=== PATIENT | female | born 1965 | race Caucasian/White ===

== ENCOUNTER 2016-09-30 13:34 | Emergency (ER) | payer MEDICAID ==
[~2016-09-30] VITALS: Ht 152.4 cm; Wt 78.0 kg
[2016-09-30 13:35] VITALS: BP 116/70; PULSE 81; RESP 18; TEMP 98.2; O2SAT 99
[2016-09-30 15:36] VITALS: BP 119/68; PULSE 61; RESP 18; TEMP 97.7; O2SAT 98; O2SAT 99
[2016-09-30] MEDS ORDERED: AMOX500C PO (15:36)
--- NOTE | 2016-09-30 15:38 | PD ---
HPI Chief Complaint: Dizziness Time Seen by Provider: 15:38 Travel History International Travel<30 days: No Contact w/Intl Traveler<30days: No Traveled to known affect area: No History of Present Illness HPI 51 YO female presents to the ED for evaluation of central chest pain, dizziness and palpitations. Resolved on presentation. Onset at noon, at rest. Patient states that she was "outside but in the shade." Patient denies accompanying SOB , diaphoresis, nausea or vomiting. Denies fevers, chills, cough, abdominal pain , dysuria. Patient endorses 20+ pack year smoking history. She states she "quit" 4 days ago and smoked a cigarette today just before onset of symptoms. LMP "a few months ago." Endorses unprotected sex and risk of . She denies personal or familial cardiac history. PFSH Past Medical History Hx Anticoagulant Therapy: Yes (ASA ) Arthritis: Yes Asthma: Yes Cardiovascular Problems: No High Cholesterol: No Chemotherapy: No COPD: No Cerebrovascular Accident: No Diabetes: No Diminished Hearing: No Musculoskeletal: No Neurologic: No Respiratory: No Immunizations Current: Yes Sleep Apnea: No Tetanus Vaccination: < 5 Years Influenza Vaccination: Yes ?: Not Menopausal: Yes : 3 Para: 3 Miscarriage: 0 : 0 Past Surgical History Section: Yes (X 3) Cholecystectomy: Yes Gynecologic Surgery: Yes ( X 3 ) Hysterectomy: No Oral Surgery: Yes Other Surgery: Yes (c section x3, right leg trauma repair) Social History Alcohol Use: No (occassionally ) Tobacco Use: Yes (quit 4 days ago and then re-started today ) Substance Use: No Allergies-Medications (Allergen,Severity, Reaction): Coded Allergies: Lortab (Verified Allergy, Intermediate, 09/30/16) PT STATES SHE THROWS UP *MDRO Multi-Drug Resistant Organism (Verified Adverse Reaction, Unknown, ) 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 SKIN: Focused skin assessment warm/dry. HEAD: Normocephalic. EYES: No scleral icterus. No injection or drainage. NECK: Supple, trachea midline. No JVD or lymphadenopathy. CARDIOVASCULAR: Regular rate and rhythm without murmurs, gallops, or rubs. RESPIRATORY: Breath sounds clear and equal bilaterally. No accessory muscle use. GASTROINTESTINAL: Abdomen soft, non-tender, nondistended. Active bowel sounds MUSCULOSKELETAL: No cyanosis, or edema. Ambulatory with a normal gait. BACK: Nontender without obvious deformity. No CVA tenderness. Data Data Last Documented VS Vital Signs Date Time Temp Pulse Resp B/P Pulse Ox O2 Delivery O2 Flow Rate FiO2 09/30/16 18:06 67 16 132/89 99 09/30/16 15:36 97.7 Room Air Orders Electrocardiogram (09/30/16 15:33) Complete Blood Count With Diff (09/30/16 15:33) Comprehensive Metabolic Panel (09/30/16 15:33) Ckmb (Isoenzyme) Profile (09/30/16 15:33) Troponin I (09/30/16 15:33) Act Partial Throm Time (Ptt) (09/30/16 15:33) Prothrombin Time / Inr (Pt) (09/30/16 15:33) Urinalysis - C+S If Indicated (09/30/16 15:33) Chest, Single Ap (09/30/16 15:33) Ct Brain W/O Iv Contrast(Rout) (09/30/16 15:33) Ecg Monitoring (09/30/16 15:33) Iv Access Insert/Monitor (09/30/16 15:33) Oximetry (09/30/16 15:33) Sodium Chloride 0.9% Flush (Ns Flush) (09/30/16 15:45) Alcohol (Ethanol) (09/30/16 15:46) Sodium Chlor 0.9% 1000 Ml Inj (Ns 1000 M (09/30/16 16:00) Ed Urine Pregnancytest Poc (09/30/16 15:46) CKMB (09/30/16 15:45) CKMB% (09/30/16 15:45) Urine Culture (09/30/16 16:35) Sulfamet-Trimeth Ds 800-160 Mg (Bactrim (09/30/16 17:30) Labs Laboratory Tests Test 09/30/16 09/30/16 15:45 16:35 White Blood Count 6.7 TH/MM3 Red Blood Count 3.98 MIL/MM3 Hemoglobin 13.5 GM/DL Hematocrit 39.2 % Mean Corpuscular Volume 98.4 FL Mean Corpuscular Hemoglobin 34.0 PG Mean Corpuscular Hemoglobin 34.6 % Concent Red Cell Distribution Width 14.3 % Platelet Count 124 TH/MM3 Mean Platelet Volume 9.1 FL Neutrophils (%) (Auto) 56.3 % Lymphocytes (%) (Auto) 32.4 % Monocytes (%) (Auto) 7.9 % Eosinophils (%) (Auto) 2.6 % Basophils (%) (Auto) 0.8 % Neutrophils # (Auto) 3.8 TH/MM3 Lymphocytes # (Auto) 2.2 TH/MM3 Monocytes # (Auto) 0.5 TH/MM3 Eosinophils # (Auto) 0.2 TH/MM3 Basophils # (Auto) 0.1 TH/MM3 CBC Comment DIFF FINAL Differential Comment Prothrombin Time 12.0 SEC Prothromb Time International 1.1 RATIO Ratio Activated Partial 27.7 SEC Thromboplast Time Sodium Level 139 MEQ/L Potassium Level 4.4 MEQ/L Chloride Level 107 MEQ/L Carbon Dioxide Level 24.1 MEQ/L Anion Gap 8 MEQ/L Blood Urea Nitrogen 14 MG/DL Creatinine 0.65 MG/DL Estimat Glomerular Filtration 97 ML/MIN Rate Random Glucose 78 MG/DL Calcium Level 8.9 MG/DL Total Bilirubin 1.1 MG/DL Aspartate Amino Transf 479 U/L (AST/SGOT) Alanine Aminotransferase 415 U/L (ALT/SGPT) Alkaline Phosphatase 215 U/L Total Creatine Kinase 115 U/L Creatine Kinase MB 1.6 NG/ML Troponin I LESS THAN 0.02 NG/ML Total Protein 7.5 GM/DL Albumin 2.9 GM/DL Ethyl Alcohol Level LESS THAN 3 MG/DL Urine Color YELLOW Urine Turbidity HAZY Urine pH 6.0 Urine Specific [place] 1.016 Urine Protein TRACE mg/dL Urine Glucose (UA) NEG mg/dL Urine Ketones NEG mg/dL Urine Occult Blood SMALL Urine Nitrite POS Urine Bilirubin NEG Urine Urobilinogen 2.0 MG/DL Urine Leukocyte Esterase LARGE Urine RBC 6 /hpf Urine WBC /hpf Urine WBC Clumps FEW Urine Squamous Epithelial 3 /hpf Cells Urine Bacteria OCC /hpf Urine Mucus FEW /lpf Microscopic Urinalysis Comment CULTURE INDICATED MDM Medical Decision Making Medical Screen Exam Complete: Yes Emergency Medical Condition: Yes Differential Diagnosis near syncope versus vasovagal syncope versus nicotine reaction versus less likely ICH versus less likely ACS versus other Narrative Course 51 YO female presents to the ED for evaluation of central chest pain, dizziness and palpitations. Resolved on presentation. Onset at noon, at rest. Patient states that she was "outside but in the shade." Patient denies accompanying SOB , diaphoresis, nausea or vomiting. Denies fevers, chills, cough, abdominal pain , dysuria. Patient endorses 20+ pack year smoking history. She states she "quit" 4 days ago and smoked a cigarette today just before onset of symptoms. LMP "a few months ago." Endorses unprotected sex and risk of . She denies personal or familial cardiac history. Vitals are reviewed and are within normal limits. Physical exam reveals a nontoxic-appearing white female in no acute distress. No focal neural deficits. Patient is laughing and joking throughout the exam. Chest clear to auscultation bilaterally. No abdominal tenderness. No CVA tenderness. No concerning abnormalities the CBC. CMP with elevation of the LFTs, chronic per record review. Cardiac enzymes negative 1. EKG rate 63, sinus rhythm, normal intervals, normal axis. No ST elevations. Reviewed by Dr. Lagos. Chest x-ray with no evidence of acute cardiopulmonary disease. UA is nitrite and leukocyte esterase positive. WBC clumps are present as well. Discussed the patient, results of the workup and plan of care with Dr. Lagos. I discussed the results of the workup with the patient. She was prescribed Bactrim DS twice a day 7 days. First dose administered in the ED. She is instructed to stop smoking, take all medication as prescribed, follow up with the primary care provider. She indicated understanding of instructions and is agreeable to the care plan. This patient is stable and discharged home. Diagnosis Primary Impression: UTI (urinary tract infection) Qualified Code: N39.0 - Urinary tract infection without hematuria, site unspecified Referrals: Primary Care Physician Patient Instructions: General Instructions, Urinary Tract Infection in Women ( ED) Additional Instructions: Rest, hydrate. Take all antibiotics as prescribed, even if symptoms resolve. Don't start smoking again! Follow-up with the primary care provider Return to the ED for worsening of symptoms or any urgent or emergent medical condition. Med/Other Pt SpecificInfo: Prescription(s) given Scripts Sulfamethoxazole-Trimethoprim (Bactrim DS)800-160 Mg Tab1 Tab PO BID #14 TAB Ref 0 Prov:Nick Lagos MD 09/30/16 Disposition: 01 DISCHARGE HOME Condition: Stable Madelin Cantu Sep 30, 2016 15:38
[2016-09-30] MEDS ORDERED: SODIUM CHLORIDE 0.9% FLUSH 10 ML FLUSH IVF PRN (15:45)
[2016-09-30] MEDS ORDERED: SODIUM CHLOR 0.9% 1000 ML INJ 1,000 ML IV ONE (16:00)
--- NOTE | 2016-09-30 16:24 | RADRPT ---
EXAM DATE/TIME: 09/30/2016 15:43 [facility] COMPARISON: No previous studies available for comparison. INDICATIONS : Chest pains. MEDICAL HISTORY : None. SURGICAL HISTORY : Cholecystectomy. section ENCOUNTER: Initial ACUITY: 1 day PAIN SCORE: 0/10 LOCATION: Bilateral chest FINDINGS: A single view of the chest demonstrates the lungs to be symmetrically aerated without evidence of mas s, infiltrate or effusion. The cardiomediastinal contours are unremarkable. Osseous structures are intact. CONCLUSION: 1. No acute cardiopulmonary findings Hero Soto MD on September 30, 2016 at 16:17 Board Certified Radiologist. This report was verified electronically.
--- NOTE | 2016-09-30 16:26 | RADRPT ---
EXAM DATE/TIME: 09/30/2016 16:06 [facility] COMPARISON: CT BRAIN W/O CONTRAST, August 14, 2015, 7:53. INDICATIONS : Dizziness RADIATION DOSE: 49.69 CTDIvol (mGy) MEDICAL HISTORY : Asa asthma SURGICAL HISTORY : section. ENCOUNTER: Initial ACUITY: 1 day PAIN SCALE: 0/10 LOCATION: cranial TECHNIQUE: Multiple contiguous axial images were obtained of the head. Using automated exposure control and adj ustment of the mA and/or kV according to patient size, radiation dose was kept as low as reasonably a chievable to obtain optimal diagnostic quality images. FINDINGS: CEREBRUM: The ventricles are normal for age. No evidence of midline shift, mass lesion, hemorrhage or acute in farction. No extra-axial fluid collections are seen. POSTERIOR FOSSA: The cerebellum and brainstem are intact. The 4th ventricle is midline. The cerebellopontine angle i s unremarkable. EXTRACRANIAL: The visualized portion of the orbits is intact. SKULL: The calvaria is intact. No evidence of skull fracture. CONCLUSION: No acute disease. Felipe Key MD on September 30, 2016 at 16:21 Board Certified Radiologist. This report was verified electronically.
[2016-09-30 16:40] LABS: AUTOMATED NEUTROPHIL # 3.8 TH/MM3 (1.8-7.7); BASOPHIL # 0.1 TH/MM3 (0-0.2); BASOPHIL % 0.8 % (0.0-2.0); EOSINOPHIL # 0.2 TH/MM3 (0-0.4); EOSINOPHIL % 2.6 % (0.0-4.0); HEMATOCRIT 39.2 % (35.0-46.0); HEMO FLAGS DIFF FINAL; LYMPH % 32.4 % (9.0-44.0); LYMPHOCYTE # 2.2 TH/MM3 (1.0-4.8); MEAN CELL VOLUME 98.4 FL (80.0-100.0); MEAN CORPUSCULAR HGB CONC 34.6 % (32.0-36.0); MONO % 7.9 % (0.0-8.0); NEUT % 56.3 % (16.0-70.0); PLATELET COUNT 124 TH/MM3 (150-450); RED BLOOD COUNT 3.98 MIL/MM3 (4.00-5.30); RED CELL DISTRIBUTION WIDTH 14.3 % (11.6-17.2); WHITE BLOOD COUNT 6.7 TH/MM3 (4.0-11.0)
[2016-09-30 16:50] LABS: APTT (PATIENT) 27.7 SEC (24.3-30.1); INTERNATIONAL NORMALIZED RATIO 1.1 RATIO
--- NOTE | 2016-09-30 16:51 | EKG ---
Date Performed: 09/30/2016 Time Performed: 14:09:46 PTAGE: 51 years EKG: Sinus rhythm NORMAL ECG NO PREVIOUS TRACING DOCTOR: Kieran Street Interpretating Date/Time 09/30/2016 16:48:40
[2016-09-30 17:02] LABS: ANION GAP 8 MEQ/L (5-15); AST (GOT) 479 U/L (15-37); BICARBONATE 24.1 MEQ/L (21.0-32.0); BLOOD UREA NITROGEN 14 MG/DL (7-18); CHLORIDE 107 MEQ/L (98-107); GLOMERULAR FILTRATION RATE 97 ML/MIN (>89); SODIUM (NA) 139 MEQ/L (136-145)
[2016-09-30 17:06] LABS: POTASSIUM 4.4 MEQ/L (3.5-5.1)
[2016-09-30 17:07] LABS: ALKALINE PHOSPHATASE 215 U/L (45-117); ALT (GPT) 415 U/L (10-53); CREATINE KINASE 115 U/L (26-192); TOTAL BILIRUBIN ADULT 1.1 MG/DL (0.2-1.0)
[2016-09-30 17:13] LABS: BACTERIA, URINE OCC /hpf; BLOOD, URINE SMALL (NEG); COMMENT (UR) CULTURE INDICATED; CULTURE IF INDICATED CULTURE INDICATED; GLUCOSE,URINE NEG (NEG); KETONE, URINE NEG (NEG); MUCUS URINE FEW /lpf (OCC); NITRITE,URINE POS (NEG); SQUAMOUS EPITHELIAL CELL URINE 3 /hpf (0-5); URINE COLOR YELLOW (YELLW/STRAW)
[2016-09-30 17:19] LABS: CKMB 1.6 NG/ML (0.5-3.6)
[2016-09-30] MEDS ORDERED: BACT800T5 PO (17:25)
[2016-09-30] MEDS ORDERED: SULFAMETHOXAZOLE-TRIMETHOPRIM DS 800-160 MG TAB PO ONE (17:30)
[2016-09-30 18:06] VITALS: BP 132/89
== END 2016-09-30 18:05 | disposition home or self-care (01) ==
LOC: NEPD 13:34
DX: N39.0 Urinary tract infection, site not specified (principal); B96.20 Unspecified Escherichia coli [E. coli] as the cause of diseases classified elsewhere; Z72.0 Tobacco use
CPT/HCPCS: 70450; 71010; 80053; 80307; 81001; 82550; 82552; 84484; 84703; 85025; 85610; 85730; 87077; 87086; 87186; 93005; 96360; 96361; 99285; J7030

== ENCOUNTER 2016-10-26 23:30 | Emergency (ER) | payer MEDICAID ==
[~2016-10-26] VITALS: Ht 157.5 cm; Wt 80.0 kg
[~2016-10-26 23:30] MED LIST: AMOX500C PO; BACT800T5 PO
[2016-10-26 23:33] VITALS: BP 126/89; PULSE 87; RESP 20; TEMP 97.6; O2SAT 96
[2016-10-27] MEDS ORDERED: CIPR0.3S RIGHT EAR (00:08)
[2016-10-27] MEDS ORDERED: NORC5TAB PO (00:08)
--- NOTE | 2016-10-27 00:08 | PD ---
HPI . Right ear pain Chief Complaint: ENT Complaint Time Seen by Provider: 23:59 Travel History International Travel<30 days: No Contact w/Intl Traveler<30days: No Traveled to known affect area: No History of Present Illness HPI Patient presents with chief complaint of right ear pain. Onset was a week ago. Her symptoms were made acutely worse tonight when she put Vicks in her ear. She is complaining with severe pain and itching of the right ear. The pain is continuous. She states that it has been draining yellow material. PFSH Past Medical History Hx Anticoagulant Therapy: Yes (ASA ) Arthritis: Yes Asthma: Yes Cardiovascular Problems: No High Cholesterol: No Chemotherapy: No COPD: No Cerebrovascular Accident: No Diabetes: No Diminished Hearing: No Musculoskeletal: No Neurologic: No Respiratory: No Immunizations Current: Yes Sleep Apnea: No ?: Not Menopausal: Yes : 3 Para: 3 Miscarriage: 0 : 0 Past Surgical History Section: Yes (X 3) Cholecystectomy: Yes Gynecologic Surgery: Yes ( X 3 ) Hysterectomy: No Oral Surgery: Yes Other Surgery: Yes Social History Alcohol Use: No Tobacco Use: No Substance Use: No Allergies-Medications (Allergen,Severity, Reaction): Coded Allergies: Lortab (Verified Allergy, Intermediate, 10/26/16) PT STATES SHE THROWS UP Hydrocodone (Verified Adverse Reaction, Mild, Nausea/Vomiting, 10/26/16) *MDRO Multi-Drug Resistant Organism (Verified Adverse Reaction, Unknown, ) 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 Very histrionic SKIN: Warm and dry. HEAD: Atraumatic. Normocephalic. Purulent drainage in the right EAC. The TM cannot be visualized. EYES: Pupils equal and round. Extraocular movements are intact. NECK: Trachea midline. Neck is supple. CARDIOVASCULAR: Regular rate and rhythm. RESPIRATORY: No accessory muscle use. MUSCULOSKELETAL: No obvious deformities. No edema. NEUROLOGICAL: Awake and alert. No obvious cranial nerve deficits. Motor grossly within normal limits. Normal speech. PSYCHIATRIC: Histrionic. Data Data Last Documented VS Vital Signs Date Time Temp Pulse Resp B/P Pulse Ox O2 Delivery O2 Flow Rate FiO2 10/27/16 00:00 16 10/26/16 23:33 97.6 87 126/89 96 Room Air MDM Medical Decision Making Medical Screen Exam Complete: Yes Emergency Medical Condition: Yes Differential Diagnosis Differential diagnosis of ear pain includes eustachian tube dysfunction, otitis externa, otitis media, TMJ syndrome Narrative Course Patient presents complaining with right ear pain. She has had ear pain for a week. It became acutely worse tonight when she put Vicks in her ear. She'll be treated for otitis externa. Diagnosis Primary Impression: Right otitis externa Qualified Code: H60.501 - Acute otitis externa of right ear, unspecified type Patient Instructions: General Instructions, Otitis Externa (DC) Med/Other Pt SpecificInfo: Prescription(s) given Scripts Hydrocodone-Acetaminophen ([place])5-325 mg Tab1 Tab PO Q4H PRN (PAIN) #12 TAB Ref 0 Prov:Alisia Henson MD 10/27/16 Ciprofloxacin-Dexamethasone Otic Drops (Ciprodex Otic Drops)0.3-0.1% Susp4 Drop RIGHT EAR BID 10 Days Ref 0 Prov:Alisia Henson MD 10/27/16 Disposition: 01 DISCHARGE HOME Condition: Stable Alisia Henson MD Oct 27, 2016 00:08
[2016-10-27] MEDS ORDERED: IBUPROFEN 800 MG TAB PO ONE (00:15)
[2016-10-27] MEDS ORDERED: NEOMYCIN/POLYMYXIN/HYDROCORT OTIC SUSP 10 ML BTL RIGHT EAR SCH (00:15)
== END 2016-10-27 00:33 | disposition home or self-care (01) ==
LOC: NEPD 23:30
DX: H60.91 Unspecified otitis externa, right ear (principal); M13.80 Other specified arthritis, unspecified site; J45.909 Unspecified asthma, uncomplicated; Z79.899 Other long term (current) drug therapy
CPT/HCPCS: 99283

== ENCOUNTER 2018-06-05 18:01 | Inpatient (IN) ==
[2018-06-05] MEDS ORDERED: Morphine Inj 4 MG/ML Vial IV.PUSH ONE (19:22)
--- NOTE | 2018-06-05 19:32 | ED ---
Triage General Chief Complaint: Abdominal Pain Time Seen by Provider: 06/05/18 19:16 Source: patient and other (friend) Limitations: no limitations Pre-Hospital Care Pre-Hospital Care Given: No History of Present Illness HPI narrative: 52-year-old female here for evaluation of severe abdominal pain, abdominal distention, bilateral lower extremity edema. Patient reports that in August of last year she was told that she has a mass in her left lower abdomen at [facility] and was followed initially by oncologist Dr. Santos. Patient has been homeless and has not been able to follow with this physician since August of last year. She is not sure what the exact etiology of the masses. She was supposed to follow with an [employer] physician regarding the mass, however has been unable to do so. Over the last 4 days she has noticed increasing abdominal girth and worsening abdominal pain. She was prescribed tramadol from an urgent care clinic, however this has not been helping her. She has had history of sections, no other abdominal surgeries. She has been having nausea, vomiting, and diarrhea which have been nonbloody, nonbilious, however the symptoms have resolved. The pain starts in her left lower abdomen, is severe, constant, pressure/sharp, radiates to the rest of her abdomen, worse with movements and palpation. After examining the patient, given history and exam findings of a distended abdomen with the possibility of an acute abdomen versus ascites versus peritonitis versus metastatic disease, the patient will likely require an extensive workup and admission. She will be transferred to a medical pod where the patient's care will be taken over by another physician. Initial workup ordered by me in triage which include labs, UA, CT abdomen pelvis, chest x-ray, analgesia. Exam Narrative Exam: GENERAL: Well-developed, well-nourished, overweight, very uncomfortable secondary to abdominal pain, pleasant, calm SKIN: Focused skin assessment warm/dry. HEAD: Atraumatic. Normocephalic. EYES: Pupils equal and round. No scleral icterus. No injection or drainage. ENT: No nasal bleeding or discharge. Mucous membranes pink and moist. NECK: Trachea midline. No JVD. CARDIOVASCULAR: Regular rate and rhythm. No murmur appreciated. RESPIRATORY: No accessory muscle use. Clear to auscultation. Breath sounds equal bilaterally. GASTROINTESTINAL: Abdomen firm, round, distended, significantly tender throughout her abdomen. There is a midline/lower well-healed vertical surgical scar that the patient reports is from prior section. MUSCULOSKELETAL: No obvious deformities. No clubbing. No cyanosis. Significant bilateral lower extremity edema from foot to thigh. NEUROLOGICAL: Awake and alert. No obvious cranial nerve deficits. Motor grossly within normal limits. Normal speech. PSYCHIATRIC: Appropriate mood and affect; insight and judgment normal. Home Meds Home Medications Medication Instructions Recorded Confirmed tramadol 50 mg PO QID 06/05/18 06/05/18 Allergies Allergies Allergy/AdvReac Type Severity Reaction Status Date / Time acetaminophen Allergy Intermediate Nausea/Vomi Verified 06/05/18 20:57 ting hydrocodone AdvReac Mild Nausea/Vomi Verified 06/05/18 20:57 ting *MDRO Multi-Drug Resistant AdvReac Unknown Nausea/Vomi Uncoded 06/05/18 20:57 Organism ting Vital Signs Recall Vital Signs: Initial Documented Vital Signs Temperature 97.9 F 06/05/18 18:03 Pulse Rate 81 06/05/18 18:03 Respiratory Rate 16 06/05/18 18:03 Blood Pressure 131/81 06/05/18 18:03 Pulse Oximetry 97 06/05/18 18:03 Last Documented Vital Signs Temperature 97.9 F 06/05/18 18:03 Pulse Rate 81 06/05/18 18:03 Respiratory Rate 16 06/05/18 18:03 Blood Pressure 131/81 06/05/18 18:03 Pulse Oximetry 97 06/05/18 18:03 Vital Signs 3 l l l l 06/05/18 18:03 l l Height 152.4 cm l l Weight 113.398 kg l l BMI 48.8 l l BP 131/81 l l Blood Pressure Location l l Position Sitting l l Respiration 16 l l Pulse 81 l l Pulse Source l l Temp 97.9 F l l Temp Source Oral l l Pulse Oximetry (%) 97 l l Oxygen Delivery Method l l Oxygen Flow Rate l l Comment PMFSH Surgical History Surgical History H/O: (Acute) Social History Social History Substance History: Active Abuse Smoking Status: Former smoker How Often Do You Have a Drink Containing Alcohol: Never Recent Travel in [facility] within the Last 8 Weeks: No Recent Out of Country Travel within the Last 8 Weeks: No Substance Abuse Detail Marijuana: Substance Use Status: Active Route Used Substance Abuse: Inhalation Reason for Use: Get High Immunization History Tetanus Immunization: Unsure
[2018-06-05 19:45] LABS: Eos # (Auto) 0.2 th/mm3 (0.0-0.4); Eos % (Auto) 3.9 % (0.0-4.0); Hematocrit 37.1 % (35.0-46.0); Hemoglobin 12.5 gm/dL (11.6-15.3); Lymph # (Auto) 1.4 th/mm3 (1.0-4.8); Lymph % (Auto) 29.4 % (9.0-44.0); Mean Corpuscular HGB Conc 33.8 % (32.0-36.0); Mean Corpuscular Hemoglobin 33.6 pg (27.0-34.0); Mean Corpuscular Volume 99.4 fL (80.0-100.0); Mean Platelet Volume 8.2 fL (7.0-11.0); Mono # (Auto) 0.5 th/mm3 (0.0-0.9); Mono % (Auto) 10.8 % (0.0-8.0); Neut # (Auto) 2.7 th/mm3 (1.8-7.7); Neut % (Auto) 54.9 % (16.0-70.0); Platelet Count 117 th/mm3 (150-450); Red Blood Count 3.73 mil/mm3 (4.00-5.30); Red Cell Distribution Width 14.5 % (11.6-17.2); White Blood Count 4.8 th/mm3 (4.0-11.0)
[2018-06-05 20:10] LABS: Alanine Aminotransferase 129 U/L (10-53)
[2018-06-05 20:11] LABS: Activated Partial Thrombo Time 30.3 sec (23.4-31.7); INR 1.4 Ratio
[2018-06-05 20:12] LABS: Alkaline Phosphatase 190 U/L (45-117); Total Protein 6.9 g/dL (6.4-8.2)
[2018-06-05 20:15] LABS: Anion Gap 6 meq/L (5-15); Aspartate Aminotransferase 220 U/L (15-37); Blood Urea Nitrogen 12 mg/dL (7-18); Carbon Dioxide 26.1 meq/L (21.0-32.0); Chloride 107 meq/L (98-107); Glomerular Filtration Rate Greater Than 89 mL/min (>89); Glucose,Random 99 mg/dL (74-106); Lipase 94 U/L (73-393); Magnesium 2.1 mg/dL (1.5-2.5); Potassium 4.2 meq/L (3.5-5.1); Sodium 139 meq/L (136-145)
--- NOTE | 2018-06-05 21:01 | XR ---
EXAM DATE: 06/05/2018 8:59 PM EST AGE/SEX: 52 years / Female INDICATIONS: Shortness of breath. CLINICAL DATA: This is the patient's initial encounter. Patient reports that signs and symptoms have been present for 1 day and indicates a pain score of 0/10. MEDICAL/SURGICAL HISTORY: None. Cholecystectomy. section. COMPARISON: [facility] [place], CHEST SINGLE AP, 09/30/2016. . FINDINGS: A single AP view of the chest demonstrates the lungs to be symmetrically aerated without evidence of mass, infiltrate or effusion. No evidence of pneumothorax. The cardiomediastinal contours are unremar kable. Osseous structures are intact. CONCLUSION: The lungs are clear. Electronically signed by: Kristopher Gillis MD Board Certified Radiologist 06/05/2018 9:00 PM EST
[2018-06-05 21:19] LABS: Amorphous Sediment,Urine Rare /hpf; Bacteria,Urine Occasional /hpf; Bilirubin,Urine Negative (Negative); Calcium Oxalate Crystals,Urine Occasional /hpf; Clarity,Urine Cloudy (Clear); Color,Urine Amber (Yellw/Straw); Glucose,Urine (UA) Negative (Negative); Leukocyte Esterase,Urine Large (Negative); Mucus,Urine Few /lpf (Occasional); Nitrite,Urine Positive (Negative); Specific Gravity,Urine 1.016 (1.002-1.035); Squamous Epithelial Cell,Urine 7 /hpf (0-5)
--- NOTE | 2018-06-05 22:21 | CT ---
EXAM DATE: 06/05/2018 10:13 PM EST AGE/SEX: 52 years / Female INDICATIONS: Abdominal pain and swelling. CLINICAL DATA: This is the patient's initial encounter. Patient reports that signs and symptoms have been present for 3 days and indicates a pain score of 5/10. MEDICAL/SURGICAL HISTORY: None. section. ORAL CONTRAST: No oral contrast ingested. RADIATION DOSE: 33.01 CTDI (mGy) ; Patient body habitus COMPARISON: [facility], CT ABDOMEN AND PELVIS W/ CONTRAST, 08/14/2017. . TECHNIQUE: Multiple contiguous axial images were obtained through the abdomen and pelvis following b olus infusion of 100 ml Omnipaque 350 (iohexol) nonionic water-soluble contrast as a single exam do se. No oral contrast ingested. Using automated exposure control and adjustment of the mA and/or kV a ccording to patient size, radiation dose was kept as low as reasonably achievable to obtain optimal d iagnostic quality images. DICOM format image data is available electronically for review and compari son. FINDINGS: Interval development of a severe amount of ascites throughout the abdomen and pelvis causing distenti on of the abdomen. Low-density mass in the right pelvis measures 10.8 cm (previously measured 11.7 cm ) there is also subcutaneous fluid about the lateral abdominal wall bilaterally and induration of the subcutaneous fat. Nodular surface contour to the liver with homogeneous enhancement. No focal hepatic lesions seen. Cho lecystectomy. The spleen has a homogeneous density. The kidneys, adrenal glands, and pancreas are int act. No evidence of retroperitoneal or inguinal adenopathy. Osseous structures are intact. Visualized lower lungs are clear. Stable urethral diverticulum. CONCLUSION: 1. Interval development of severe ascites and bilateral abdominal wall fluid. 2. Low-density cystic right pelvic mass is similar to prior. Electronically signed by: Kristopher Gillis MD Board Certified Radiologist 06/05/2018 10:20 PM EST
--- NOTE | 2018-06-05 23:13 | P.HPFP ---
History of Present Illness Primary Care Physician: Chauncey Tee MD History of Present Illness: 52-year-old female presents the ED with lower abdominal pain and abdominal distention. Patient has a history of right ovarian mass. States that she was told about this around 9 months ago. Was supposed to follow-up with Dr. Santos at [facility]. States that her appointment is not until June 25. Upon EMR review, patient was seen in the ED in 2016 and was diagnosed with right ovarian mass. Patient had appointment to follow with Dr. Triplett. Unsure if she ever followed up. She reports trouble with transportation. She reports increased abdominal distention for the past month. States that she has worsening abdominal pain for the past 2 weeks. Describes it as sharp, intermittent, located in the lower abdominal region. Rates the pain at 8 out of 10, but relieved with morphine. States that she was recently prescribed tramadol by her PCP for pain relief. Reports that she is gaining about 50 pounds over the past couple months. Last bowel movement was this morning, she states it was normal. Denies fevers, night sweats, diarrhea, nausea vomiting, and dysuria. 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 Hx: - 3 c-sections last pap smear- last year normal mammogram- last year normal PSHx:[id number] Cholecystectomy FHx: Mom- ovarian cancer- 50-60s [id number] SHx: Disabled Single Lives alone Former smoker, quit 1 month ago, 1-2 ppd for 20 years Denies drinking Endorses cocaine use in the past - Diagnosis (1) Ovarian mass (2) UTI (urinary tract infection) (3) Ascites (4) Abdominal pain Review of Systems All other systems reviewed negative except as stated in HPI PMFSH - History History Provided By: Patient, Family Member - Surgical History Surgical History: Surgical History (Last Reviewed 06/05/18 @ 23:24 by Zainab Lopez MD) H/O: - Social History I have reviewed the patient's Social History: Yes - Tobacco History Tobacco Use In Past 30 Days: No Smoking Status: Former smoker - Alcohol History How Often Do You Have a Drink Containing Alcohol: Never - Substance Use History Substance History: Active Abuse - Substance Use Type Marijuana Status: Active Route Used: Inhalation Reason for Use: Get High - Travel History Recent Travel in the [facility] Within the Last 8 Weeks: No Recent Travel Out of the Country Within the Last 8 Weeks: No - Immunization History Tetanus Immunization: Unsure Medications and Allergies Active Medications: Active Medications Sodium Chloride (Ns Flush) 2 ml IV.FLUSH PRN PRN PRN Reason: FLUSH AFTER USING IV ACCESS Allergies Allergy/AdvReac Type Severity Reaction Status Date / Time acetaminophen Allergy Intermediate Nausea/Vomi Verified 06/05/18 20:57 ting hydrocodone AdvReac Mild Nausea/Vomi Verified 06/05/18 20:57 ting *MDRO Multi-Drug Resistant AdvReac Unknown Nausea/Vomi Uncoded 06/05/18 20:57 Organism ting Home Medications Medication Instructions Recorded Confirmed Type tramadol 50 mg PO QID 06/05/18 06/05/18 History Exam Vital signs: Vital Signs 06/05/18 18:03 Temperature 97.9 F Pulse Rate 81 Respiratory Rate 16 Blood Pressure 131/81 Pulse Oximetry 97 Intake & Output 06/05/18 06/05/18 06/06/18 06:59 18:59 06:59 Weight 113.398 kg - Constitutional morbidly obese - Routine HEENT Exam ENT: Present: mucous membranes moist - Routine Neck Exam Present: supple, full ROM - Routine Respiratory Exam Present: CTA bilaterally. Absent: wheezes, crackles - Routine Cardiovascular Exam Present: RRR. Absent: S1, S2, murmur, gallop, rubs - Routine Abdominal Exam Present: soft, distended Comments: Hypoactive bowel sounds, abdomen severely distended, firm, no tenderness on palpation, no rebound, no guarding - Routine Extremities Exam Present: edema. Absent: cyanosis Comments: 2+ pitting edema bilaterally - Routine Skin Exam Present: jaundice - Routine Neurological Exam Present: alert, oriented X3 Results - Labs Result diagrams: 06/05/18 19:37 06/05/18 19:37 Abnormal lab results 06/05/18 06/05/18 06/05/18 Range/Units 19:37 19:37 19:37 RBC 3.73 L (4.00-5.30) mil/mm3 Plt Count 117 L (150-450) th/mm3 [place] % (Auto) 10.8 H (0.0-8.0) % PT 14.0 H (9.8-11.6) sec Calcium 8.0 L (8.5-10.1) mg/dL Total Bilirubin 2.0 H (0.2-1.0) mg/dL AST 220 H (15-37) U/L ALT 129 H (10-53) U/L Alkaline Phosphatase 190 H (45-117) U/L Albumin 2.0 L (3.4-5.0) g/dL Urine Clarity (Clear) Urine Protein (Neg-Trace) mg/dL Urine Occult Blood (Negative) Urine Nitrate (Negative) Ur Leukocyte Esterase (Negative) Urine RBC (0-3) /hpf Urine WBC Clumps (None) Calcium Oxalate Crystal (None) /hpf Amorphous Sediment (None) /hpf Urine Bacteria (None) /hpf Urine Mucus (Occasional) /lpf 06/05/18 Range/Units 20:45 RBC (4.00-5.30) mil/mm3 Plt Count (150-450) th/mm3 [place] % (Auto) (0.0-8.0) % PT (9.8-11.6) sec Calcium (8.5-10.1) mg/dL Total Bilirubin (0.2-1.0) mg/dL AST (15-37) U/L ALT (10-53) U/L Alkaline Phosphatase (45-117) U/L Albumin (3.4-5.0) g/dL Urine Clarity Cloudy H (Clear) Urine Protein 30 H (Neg-Trace) mg/dL Urine Occult Blood Large H (Negative) Urine Nitrate Positive H (Negative) Ur Leukocyte Esterase Large H (Negative) Urine RBC 76 H (0-3) /hpf Urine WBC Clumps Many H (None) Calcium Oxalate Crystal Occasional H (None) /hpf Amorphous Sediment Rare H (None) /hpf Urine Bacteria Occasional H (None) /hpf Urine Mucus Few H (Occasional) /lpf Short CBC 06/05/18 Range/Units 19:37 WBC 4.8 (4.0-11.0) th/mm3 Hgb 12.5 (11.6-15.3) gm/dL Hct 37.1 (35.0-46.0) % Plt Count 117 L (150-450) th/mm3 BMP 06/05/18 19:37 Sodium 139 Potassium 4.2 Chloride 107 Carbon Dioxide 26.1 BUN 12 Creatinine 0.58 Calcium 8.0 L Liver Function 06/05/18 Range/Units 19:37 Total Bilirubin 2.0 H (0.2-1.0) mg/dL AST 220 H (15-37) U/L ALT 129 H (10-53) U/L Alkaline Phosphatase 190 H (45-117) U/L Albumin 2.0 L (3.4-5.0) g/dL Urine 06/05/18 Range/Units 20:45 Urine Color [place] (Yellw/Straw) Urine Clarity Cloudy H (Clear) Urine pH 6.0 (5.0-8.5) Ur Specific [place] 1.016 (1.002-1.035) Urine Protein 30 H (Neg-Trace) mg/dL Urine Glucose (UA) Negative (Negative) mg/dL - Imaging Impressions Abdomen/Pelvis CT 06/05/18 19:22 CONCLUSION: 1. Interval development of severe ascites and bilateral abdominal wall fluid. 2. Low-density cystic right pelvic mass is similar to prior. Chest X-Ray 06/05/18 19:24 CONCLUSION: The lungs are clear. Caprini VTE Risk Assessment Caprini VTE Risk Assessment: No/Low Risk (score <= 1) Caprini Risk Assessment Model: Point Value = 1 Point Value = 2 Point Value = 3 Point Value = 5 Age 41-60 Minor surgery BMI > 25 kg/m2 Swollen legs Varicose veins or History of unexplained or recurrent spontaneous Oral contraceptives or hormone replacement Sepsis (< 1 month) Serious lung disease, including pneumonia (< 1 month) Abnormal pulmonary function Acute myocardial infarction Congestive heart failure (< 1 month) History of inflammatory bowel disease Medical patient at bed rest Age 61-74 Arthroscopic surgery Major open surgery (> 45 min) Laparoscopic surgery (> 45 min) Malignancy Confined to bed (> 72 hours) Immobilizing plaster cast Central venous access Age >= 75 History of VTE Family history of VTE Factor V Leiden Prothrombin [id number] Lupus anticoagulant Anticardiolipin antibodies Elevated serum homocysteine Heparin-induced thrombocytopenia Other congenital or acquired thrombophilia Stroke (< 1 month) Elective arthroplasty Hip, pelvis, or leg fracture Acute spinal cord injury (< 1 month) Prophylaxis Regimen: Total Risk Factor Score Risk Level Prophylaxis Regimen 0-1 Low Early ambulation 2 Moderate Order ONE of the following: *Sequential Compression Device (SCD) *Heparin 5000 units SQ BID 3-4 Higher Order ONE of the following medications: *Heparin 5000 units SQ TID *Enoxaparin/Lovenox 40 mg SQ daily (WT < 150 kg, CrCl > 30 mL/min) *Enoxaparin/Lovenox 30 mg SQ daily (WT < 150 kg, CrCl > 10-29 mL/min) *Enoxaparin/Lovenox 30 mg SQ BID (WT < 150 kg, CrCl > 30 mL/min) AND/OR *Sequential Compression Device (SCD) 5 or more Highest Order ONE of the following medications: *Heparin 5000 units SQ TID (Preferred with Epidurals) *Enoxaparin/Lovenox 40 mg SQ daily (WT < 150 kg, CrCl > 30 mL/min) *Enoxaparin/Lovenox 30 mg SQ daily (WT < 150 kg, CrCl > 10-29 mL/min) *Enoxaparin/Lovenox 30 mg SQ BID (WT < 150 kg, CrCl > 30 mL/min) AND *Sequential Compression Device (SCD) Assessment and Plan - Assessment (1) Ovarian mass Code(s): N83.9 - Noninflammatory disorder of ovary, fallopian tube and broad ligament, unspecified Status: Acute (2) UTI (urinary tract infection) Code(s): N39.0 - Urinary tract infection, site not specified Status: Acute (3) Ascites Code(s): R18.8 - Other ascites Status: Acute (4) Abdominal pain Code(s): R10.9 - Unspecified abdominal pain Status: Acute - Assessment and Plan 52-year-old female presents the ED with abdominal pain and distention secondary to right ovarian mass. Ovarian mass/ascites/abdominal pain -History of right ovarian mass, patient lost to follow-up -Abdominal pelvis CT demonstrates interval development of severe ascites and bilateral abdominal wall fluid. Low density cystic right pelvic mass similar to prior. Measures 10.8 cm, previously measured 11.7 cm. -Total bilirubin of 2.0, AST of 220, ALT of 129, alkaline phosphatase 190 -Event Technician Onc consulted for surgical intervention -N.p.o. after midnight -MIVF -Tramadol as needed for pain, morphine for breakthrough UTI -Suspect patient has UTI secondary to urinary retention due to ovarian mass -UA positive for occult blood, nitrates, leukocyte esterases, and bacteria -Urine culture pending -Continue Rocephin 1 g q24h DVT prophylaxis: Hypercoagulable, heparin x1; will restart once patient has completed surgical intervention
[2018-06-05] MEDS ORDERED: Naloxone Inj 0.4 MG/ML Vial IV.PUSH PRN (23:26)
[2018-06-05] MEDS ORDERED: Ibuprofen 400 MG Tablet PO PRN (23:26)
[2018-06-05] MEDS ORDERED: Morphine Inj 4 MG/ML Vial IV.PUSH PRN (23:26)
--- NOTE | 2018-06-05 23:26 | ED ---
HPI General Chief Complaint: Abdominal Pain Stated Complaint: Lower Stomach Pain Time Seen by Provider: 06/05/18 19:16 Source: patient and other (friend) Limitations: no limitations History of Present Illness HPI narrative: 52-year-old female came to the emergency room with history of abdominal pain and abdominal distention. Patient says that this pain has been going on for past few months and is progressively worsening. She was seen by Dr. MINOR in [facility] in August 2017 and was told that she has pelvic mass. Patient is not sure if she was supposed to follow-up and has not followed up with him. She just got new insurance and was supposed to make the appointments but then noticed that her abdomen had started to distend. She appeared to be uncomfortable in triage. She was seen by a doctor in triage and blood test as well as CAT scan was ordered. Vital signs are stable. Pain is there constantly. Related Data Home Medications Medication Instructions Recorded Confirmed tramadol 50 mg PO QID 06/05/18 06/05/18 Previous Rx's Medication Instructions Recorded furosemide 40 mg PO DAILY #90 tab 06/08/18 spironolactone 100 mg PO DAILY #90 tab 06/08/18 nadolol 40 mg PO DAILY #90 tab 06/09/18 pantoprazole 40 mg PO DAILY #60 tab 06/09/18 Allergies Allergy/AdvReac Type Severity Reaction Status Date / Time acetaminophen Allergy Intermediate Nausea/Vomi Verified 06/05/18 20:57 ting hydrocodone AdvReac Mild Nausea/Vomi Verified 06/05/18 20:57 ting *MDRO Multi-Drug Resistant AdvReac Unknown Nausea/Vomi Uncoded 06/05/18 20:57 Organism ting Review of Systems ROS: all other systems reviewed are negative [facility] Surgical History Surgical History H/O: (Acute) Social History Social History Substance History: Active Abuse Second Hand Smoke Exposure: No Smoking Status: Never smoker How Often Do You Have a Drink Containing Alcohol: Never Recent Travel in [facility] within the Last 8 Weeks: No Recent Out of Country Travel within the Last 8 Weeks: No Substance Abuse Detail Marijuana: Substance Use Status: Active Route Used Substance Abuse: Inhalation Reason for Use: Get High Immunization History Tetanus Immunization: Unsure Exam Narrative Exam Narrative: GENERAL: Awake, alert, moderate distress SKIN: Focused skin assessment warm/dry. HEAD: Atraumatic. Normocephalic. EYES: Pupils equal and round. No scleral icterus. No injection or drainage. ENT: No nasal bleeding or discharge. Mucous membranes pink and moist. NECK: Trachea midline. No JVD. CARDIOVASCULAR: Regular rate and rhythm. No murmur appreciated. RESPIRATORY: No accessory muscle use. Clear to auscultation. Breath sounds equal bilaterally. GASTROINTESTINAL: Abdomen significantly distended and tense with thrill. Hepatic and splenic margins not palpable. MUSCULOSKELETAL: No obvious deformities. No clubbing. No cyanosis. No edema. NEUROLOGICAL: Awake and alert. No obvious cranial nerve deficits. Motor grossly within normal limits. Normal speech. PSYCHIATRIC: Appropriate mood and affect; insight and judgment normal. Course Initial Documented Vital Signs Temperature 97.9 F 06/05/18 18:03 Pulse Rate 81 06/05/18 18:03 Respiratory Rate 16 06/05/18 18:03 Blood Pressure 131/81 06/05/18 18:03 Pulse Oximetry 97 06/05/18 18:03 Last Documented Vital Signs Temperature 98.1 F 06/09/18 16:00 Pulse Rate 60 06/09/18 16:00 Respiratory Rate 18 06/09/18 16:00 Blood Pressure 100/59 L 06/09/18 16:00 Pulse Oximetry 96 06/09/18 16:00 Medical Decision Making MDM Narrative Medical decision making narrative: 11:25 PM UA was grossly positive for UTI. I have ordered IV Rocephin and IV fluid bolus. CT scan report came back as ascites and pelvic masses. I explained this to the patient that there is a high likelihood of this being malignant. Patient understands. I explained to her that she would be admitted for further investigations. Case was discussed with the resident was accepted the patient. 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 Medical Screen Exam Complete: Yes Emergency Medical Condition: Yes Lab Data Result diagrams: 06/09/18 06:03 06/09/18 06:03 Lab Results 06/05/18 06/05/18 06/05/18 Range/Units 19:37 19:37 19:37 WBC 4.8 (4.0-11.0) th/mm3 RBC 3.73 L (4.00-5.30) mil/mm3 Hgb 12.5 (11.6-15.3) gm/dL Hct 37.1 (35.0-46.0) % MCV 99.4 (80.0-100.0) fL MCH 33.6 (27.0-34.0) pg MCHC 33.8 (32.0-36.0) % RDW 14.5 (11.6-17.2) % Plt Count 117 L (150-450) th/mm3 MPV 8.2 (7.0-11.0) fL Prelim Diff (Auto) Neut % (Auto) 54.9 (16.0-70.0) % Lymph % (Auto) 29.4 (9.0-44.0) % [place] % (Auto) 10.8 H (0.0-8.0) % Eos % (Auto) 3.9 (0.0-4.0) % Baso % (Auto) 1.0 (0.0-2.0) % Neut # (Auto) 2.7 (1.8-7.7) th/mm3 Lymph # (Auto) 1.4 (1.0-4.8) th/mm3 [place] # (Auto) 0.5 (0.0-0.9) th/mm3 Eos # (Auto) 0.2 (0.0-0.4) th/mm3 Baso # (Auto) 0.0 (0.0-0.2) th/mm3 WBC Differential . Diff Scan Differential Comment Auto diff final Platelet Estimate (Normal) Platelet Morphology (Normal) PT 14.0 H (9.8-11.6) sec INR 1.4 Ratio APTT 30.3 (23.4-31.7) sec Sodium 139 (136-145) meq/L Potassium 4.2 (3.5-5.1) meq/L Chloride 107 (98-107) meq/L Carbon Dioxide 26.1 (21.0-32.0) meq/L Anion Gap 6 (5-15) meq/L BUN 12 (7-18) mg/dL Creatinine 0.58 (0.50-1.00) mg/dL Estimated GFR Greater than 89 (>89) mL/min Random Glucose 99 (74-106) mg/dL Lactic Acid (0.4-2.0) mmol/L Calcium 8.0 L (8.5-10.1) mg/dL Calcium Adj for Albumin (8.5-10.1) mg/dL Magnesium 2.1 (1.5-2.5) mg/dL Total Bilirubin 2.0 H (0.2-1.0) mg/dL AST 220 H (15-37) U/L ALT 129 H (10-53) U/L Alkaline Phosphatase 190 H (45-117) U/L Lactate Dehydrogenase (84-246) U/L B-Natriuretic Peptide (0-100) pg/mL Total Protein 6.9 (6.4-8.2) g/dL Albumin 2.0 L (3.4-5.0) g/dL Lipase 94 (73-393) U/L Tumor Marker AFP (0.5-8.0) ng/mL CA 125 Antigen (0.0-30.2) U/mL Beta HCG, Quant (0-5) mIU/mL Urine Color (Yellw/Straw) Urine Clarity (Clear) Urine pH (5.0-8.5) Ur Specific [place] (1.002-1.035) Urine Protein (Neg-Trace) mg/dL Urine Glucose (UA) (Negative) mg/dL Urine Ketones (Negative) mg/dL Urine Occult Blood (Negative) Urine Nitrate (Negative) Urine Bilirubin (Negative) Urine Urobilinogen (Less than 2) mg/dL Ur Leukocyte Esterase (Negative) Urine RBC (0-3) /hpf Urine WBC (0-5) /hpf Urine WBC Clumps (None) Ur Squamous Epith Cells (0-5) /hpf Calcium Oxalate Crystal (None) /hpf Amorphous Sediment (None) /hpf Urine Bacteria (None) /hpf Urine Mucus (Occasional) /lpf Micro UA Comment Ur Microscopic Review Urine Culture Comments Peritoneal RBC (0-0) /mm3 Periton Nuc Cells (0-10) /mm3 Periton Neutrophils % Periton Lymphocytes % Peritoneal Monocytes % Periton Mesothelial % Periton Histiocytes % Peritoneal Tot Protein gm/dL Peritoneal Albumin g/dL Peritoneal LDH U/L Peritoneal Glucose mg/dL Peritoneal Amylase U/L Stool [id number] (<= 54) mg/dL Anti-Smooth Muscle Ab (Negative) Hepatitis A IgM Ab (Nonreactive) Hep Bs Antigen (Nonreactive) Hep B Core IgM Ab (Nonreactive) Hep C IgG Ab (Nonreactive) Blood Type Blood Type Recheck Antibody Screen 06/05/18 06/05/18 06/05/18 Range/Units 19:37 19:37 19:37 WBC (4.0-11.0) th/mm3 RBC (4.00-5.30) mil/mm3 Hgb (11.6-15.3) gm/dL Hct (35.0-46.0) % MCV (80.0-100.0) fL MCH (27.0-34.0) pg MCHC (32.0-36.0) % RDW (11.6-17.2) % Plt Count (150-450) th/mm3 MPV (7.0-11.0) fL Prelim Diff (Auto) Neut % (Auto) (16.0-70.0) % Lymph % (Auto) (9.0-44.0) % [place] % (Auto) (0.0-8.0) % Eos % (Auto) (0.0-4.0) % Baso % (Auto) (0.0-2.0) % Neut # (Auto) (1.8-7.7) th/mm3 Lymph # (Auto) (1.0-4.8) th/mm3 [place] # (Auto) (0.0-0.9) th/mm3 Eos # (Auto) (0.0-0.4) th/mm3 Baso # (Auto) (0.0-0.2) th/mm3 WBC Differential Diff Scan Differential Comment Platelet Estimate (Normal) Platelet Morphology (Normal) PT (9.8-11.6) sec INR Ratio APTT (23.4-31.7) sec Sodium (136-145) meq/L Potassium (3.5-5.1) meq/L Chloride (98-107) meq/L Carbon Dioxide (21.0-32.0) meq/L Anion Gap (5-15) meq/L BUN (7-18) mg/dL Creatinine (0.50-1.00) mg/dL Estimated GFR (>89) mL/min Random Glucose (74-106) mg/dL Lactic Acid 1.2 (0.4-2.0) mmol/L Calcium (8.5-10.1) mg/dL Calcium Adj for Albumin (8.5-10.1) mg/dL Magnesium (1.5-2.5) mg/dL Total Bilirubin (0.2-1.0) mg/dL AST (15-37) U/L ALT (10-53) U/L Alkaline Phosphatase (45-117) U/L Lactate Dehydrogenase (84-246) U/L B-Natriuretic Peptide 45 (0-100) pg/mL Total Protein (6.4-8.2) g/dL Albumin (3.4-5.0) g/dL Lipase (73-393) U/L Tumor Marker AFP (0.5-8.0) ng/mL CA 125 Antigen (0.0-30.2) U/mL Beta HCG, Quant Less than 1 (0-5) mIU/mL Urine Color (Yellw/Straw) Urine Clarity (Clear) Urine pH (5.0-8.5) Ur Specific [place] (1.002-1.035) Urine Protein (Neg-Trace) mg/dL Urine Glucose (UA) (Negative) mg/dL Urine Ketones (Negative) mg/dL Urine Occult Blood (Negative) Urine Nitrate (Negative) Urine Bilirubin (Negative) Urine Urobilinogen (Less than 2) mg/dL Ur Leukocyte Esterase (Negative) Urine RBC (0-3) /hpf Urine WBC (0-5) /hpf Urine WBC Clumps (None) Ur Squamous Epith Cells (0-5) /hpf Calcium Oxalate Crystal (None) /hpf Amorphous Sediment (None) /hpf Urine Bacteria (None) /hpf Urine Mucus (Occasional) /lpf Micro UA Comment Ur Microscopic Review Urine Culture Comments Peritoneal RBC (0-0) /mm3 Periton Nuc Cells (0-10) /mm3 Periton Neutrophils % Periton Lymphocytes % Peritoneal Monocytes % Periton Mesothelial % Periton Histiocytes % Peritoneal Tot Protein gm/dL Peritoneal Albumin g/dL Peritoneal LDH U/L Peritoneal Glucose mg/dL Peritoneal Amylase U/L Stool [id number] (<= 54) mg/dL Anti-Smooth Muscle Ab (Negative) Hepatitis A IgM Ab (Nonreactive) Hep Bs Antigen (Nonreactive) Hep B Core IgM Ab (Nonreactive) Hep C IgG Ab (Nonreactive) Blood Type Blood Type Recheck Antibody Screen 06/05/18 06/06/18 06/06/18 Range/Units 20:45 00:30 08:07 WBC 4.5 (4.0-11.0) th/mm3 RBC 3.38 L (4.00-5.30) mil/mm3 Hgb 11.9 (11.6-15.3) gm/dL Hct 34.4 L (35.0-46.0) % MCV 101.9 H (80.0-100.0) fL MCH 35.2 H (27.0-34.0) pg MCHC 34.6 (32.0-36.0) % RDW 14.9 (11.6-17.2) % Plt Count 104 L (150-450) th/mm3 MPV 7.8 (7.0-11.0) fL Prelim Diff (Auto) Neut % (Auto) 51.5 (16.0-70.0) % Lymph % (Auto) 34.0 (9.0-44.0) % [place] % (Auto) 9.8 H (0.0-8.0) % Eos % (Auto) 4.1 H (0.0-4.0) % Baso % (Auto) 0.6 (0.0-2.0) % Neut # (Auto) 2.3 (1.8-7.7) th/mm3 Lymph # (Auto) 1.5 (1.0-4.8) th/mm3 [place] # (Auto) 0.4 (0.0-0.9) th/mm3 Eos # (Auto) 0.2 (0.0-0.4) th/mm3 Baso # (Auto) 0.0 (0.0-0.2) th/mm3 WBC Differential . Diff Scan Differential Comment Auto diff final Platelet Estimate (Normal) Platelet Morphology (Normal) PT (9.8-11.6) sec INR Ratio APTT (23.4-31.7) sec Sodium (136-145) meq/L Potassium (3.5-5.1) meq/L Chloride (98-107) meq/L Carbon Dioxide (21.0-32.0) meq/L Anion Gap (5-15) meq/L BUN (7-18) mg/dL Creatinine (0.50-1.00) mg/dL Estimated GFR (>89) mL/min Random Glucose (74-106) mg/dL Lactic Acid (0.4-2.0) mmol/L Calcium (8.5-10.1) mg/dL Calcium Adj for Albumin (8.5-10.1) mg/dL Magnesium (1.5-2.5) mg/dL Total Bilirubin (0.2-1.0) mg/dL AST (15-37) U/L ALT (10-53) U/L Alkaline Phosphatase (45-117) U/L Lactate Dehydrogenase (84-246) U/L B-Natriuretic Peptide (0-100) pg/mL Total Protein (6.4-8.2) g/dL Albumin (3.4-5.0) g/dL Lipase (73-393) U/L Tumor Marker AFP (0.5-8.0) ng/mL CA 125 Antigen (0.0-30.2) U/mL Beta HCG, Quant (0-5) mIU/mL Urine Color [place] (Yellw/Straw) Urine Clarity Cloudy H (Clear) Urine pH 6.0 (5.0-8.5) Ur Specific [place] 1.016 (1.002-1.035) Urine Protein 30 H (Neg-Trace) mg/dL Urine Glucose (UA) Negative (Negative) mg/dL Urine Ketones Negative (Negative) mg/dL Urine Occult Blood Large H (Negative) Urine Nitrate Positive H (Negative) Urine Bilirubin Negative (Negative) Urine Urobilinogen 1.0 (Less than 2) mg/dL Ur Leukocyte Esterase Large H (Negative) Urine RBC 76 H (0-3) /hpf Urine WBC (0-5) /hpf Urine WBC Clumps Many H (None) Ur Squamous Epith Cells 7 (0-5) /hpf Calcium Oxalate Crystal Occasional H (None) /hpf Amorphous Sediment Rare H (None) /hpf Urine Bacteria Occasional H (None) /hpf Urine Mucus Few H (Occasional) /lpf Micro UA Comment Culture indicated Ur Microscopic Review Not Reportable Urine Culture Comments Culture indicated Peritoneal RBC (0-0) /mm3 Periton Nuc Cells (0-10) /mm3 Periton Neutrophils % Periton Lymphocytes % Peritoneal Monocytes % Periton Mesothelial % Periton Histiocytes % Peritoneal Tot Protein gm/dL Peritoneal Albumin g/dL Peritoneal LDH U/L Peritoneal Glucose mg/dL Peritoneal Amylase U/L Stool m-1-Rookqtaxgmv (<= 54) mg/dL Anti-Smooth Muscle Ab (Negative) Hepatitis A IgM Ab (Nonreactive) Hep Bs Antigen (Nonreactive) Hep B Core IgM Ab (Nonreactive) Hep C IgG Ab (Nonreactive) Blood Type O Positive Blood Type Recheck Required Antibody Screen Negative 06/06/18 06/06/18 06/07/18 Range/Units 08:07 12:09 06:06 WBC (4.0-11.0) th/mm3 RBC (4.00-5.30) mil/mm3 Hgb (11.6-15.3) gm/dL Hct (35.0-46.0) % MCV (80.0-100.0) fL MCH (27.0-34.0) pg MCHC (32.0-36.0) % RDW (11.6-17.2) % Plt Count (150-450) th/mm3 MPV (7.0-11.0) fL Prelim Diff (Auto) Neut % (Auto) (16.0-70.0) % Lymph % (Auto) (9.0-44.0) % [place] % (Auto) (0.0-8.0) % Eos % (Auto) (0.0-4.0) % Baso % (Auto) (0.0-2.0) % Neut # (Auto) (1.8-7.7) th/mm3 Lymph # (Auto) (1.0-4.8) th/mm3 [place] # (Auto) (0.0-0.9) th/mm3 Eos # (Auto) (0.0-0.4) th/mm3 Baso # (Auto) (0.0-0.2) th/mm3 WBC Differential Diff Scan Differential Comment Platelet Estimate (Normal) Platelet Morphology (Normal) PT (9.8-11.6) sec INR Ratio APTT (23.4-31.7) sec Sodium 141 (136-145) meq/L Potassium 3.7 (3.5-5.1) meq/L Chloride 111 H (98-107) meq/L Carbon Dioxide 22.9 (21.0-32.0) meq/L Anion Gap 7 (5-15) meq/L BUN 10 (7-18) mg/dL Creatinine 0.40 L (0.50-1.00) mg/dL Estimated GFR Greater than 89 (>89) mL/min Random Glucose 67 L (74-106) mg/dL Lactic Acid (0.4-2.0) mmol/L Calcium 7.6 L (8.5-10.1) mg/dL Calcium Adj for Albumin (8.5-10.1) mg/dL Magnesium (1.5-2.5) mg/dL Total Bilirubin 2.1 H (0.2-1.0) mg/dL AST 199 H (15-37) U/L ALT 116 H (10-53) U/L Alkaline Phosphatase 152 H (45-117) U/L Lactate Dehydrogenase 251 H (84-246) U/L B-Natriuretic Peptide (0-100) pg/mL Total Protein 6.1 L D (6.4-8.2) g/dL Albumin 1.8 L (3.4-5.0) g/dL Lipase (73-393) U/L Tumor Marker AFP (0.5-8.0) ng/mL CA 125 Antigen 841.4 H (0.0-30.2) U/mL Beta HCG, Quant (0-5) mIU/mL Urine Color (Yellw/Straw) Urine Clarity (Clear) Urine pH (5.0-8.5) Ur Specific [place] (1.002-1.035) Urine Protein (Neg-Trace) mg/dL Urine Glucose (UA) (Negative) mg/dL Urine Ketones (Negative) mg/dL Urine Occult Blood (Negative) Urine Nitrate (Negative) Urine Bilirubin (Negative) Urine Urobilinogen (Less than 2) mg/dL Ur Leukocyte Esterase (Negative) Urine RBC (0-3) /hpf Urine WBC (0-5) /hpf Urine WBC Clumps (None) Ur Squamous Epith Cells (0-5) /hpf Calcium Oxalate Crystal (None) /hpf Amorphous Sediment (None) /hpf Urine Bacteria (None) /hpf Urine Mucus (Occasional) /lpf Micro UA Comment Ur Microscopic Review Urine Culture Comments Peritoneal RBC (0-0) /mm3 Periton Nuc Cells (0-10) /mm3 Periton Neutrophils % Periton Lymphocytes % Peritoneal Monocytes % Periton Mesothelial % Periton Histiocytes % Peritoneal Tot Protein gm/dL Peritoneal Albumin g/dL Peritoneal LDH U/L Peritoneal Glucose mg/dL Peritoneal Amylase U/L Stool p-2-Dpsytfuojrg (<= 54) mg/dL Anti-Smooth Muscle Ab (Negative) Hepatitis A IgM Ab (Nonreactive) Hep Bs Antigen (Nonreactive) Hep B Core IgM Ab (Nonreactive) Hep C IgG Ab (Nonreactive) Blood Type Blood Type Recheck Antibody Screen 06/07/18 06/07/18 06/07/18 Range/Units 09:24 09:24 11:20 WBC (4.0-11.0) th/mm3 RBC (4.00-5.30) mil/mm3 Hgb (11.6-15.3) gm/dL Hct (35.0-46.0) % MCV (80.0-100.0) fL MCH (27.0-34.0) pg MCHC (32.0-36.0) % RDW (11.6-17.2) % Plt Count (150-450) th/mm3 MPV (7.0-11.0) fL Prelim Diff (Auto) Neut % (Auto) (16.0-70.0) % Lymph % (Auto) (9.0-44.0) % [place] % (Auto) (0.0-8.0) % Eos % (Auto) (0.0-4.0) % Baso % (Auto) (0.0-2.0) % Neut # (Auto) (1.8-7.7) th/mm3 Lymph # (Auto) (1.0-4.8) th/mm3 [place] # (Auto) (0.0-0.9) th/mm3 Eos # (Auto) (0.0-0.4) th/mm3 Baso # (Auto) (0.0-0.2) th/mm3 WBC Differential Diff Scan Differential Comment Platelet Estimate (Normal) Platelet Morphology (Normal) PT (9.8-11.6) sec INR Ratio APTT (23.4-31.7) sec Sodium 141 (136-145) meq/L Potassium 3.9 (3.5-5.1) meq/L Chloride 108 H (98-107) meq/L Carbon Dioxide 28.2 (21.0-32.0) meq/L Anion Gap 5 (5-15) meq/L BUN 12 (7-18) mg/dL Creatinine 0.61 (0.50-1.00) mg/dL Estimated GFR Greater than 89 (>89) mL/min Random Glucose 75 (74-106) mg/dL Lactic Acid (0.4-2.0) mmol/L Calcium 7.4 L* (8.5-10.1) mg/dL Calcium Adj for Albumin 9.2 (8.5-10.1) mg/dL Magnesium (1.5-2.5) mg/dL Total Bilirubin 1.8 H (0.2-1.0) mg/dL AST 224 H (15-37) U/L ALT 123 H (10-53) U/L Alkaline Phosphatase 153 H (45-117) U/L Lactate Dehydrogenase (84-246) U/L B-Natriuretic Peptide (0-100) pg/mL Total Protein 6.1 L (6.4-8.2) g/dL Albumin 1.8 L (3.4-5.0) g/dL Lipase (73-393) U/L Tumor Marker AFP (0.5-8.0) ng/mL CA 125 Antigen (0.0-30.2) U/mL Beta HCG, Quant (0-5) mIU/mL Urine Color (Yellw/Straw) Urine Clarity (Clear) Urine pH (5.0-8.5) Ur Specific [place] (1.002-1.035) Urine Protein (Neg-Trace) mg/dL Urine Glucose (UA) (Negative) mg/dL Urine Ketones (Negative) mg/dL Urine Occult Blood (Negative) Urine Nitrate (Negative) Urine Bilirubin (Negative) Urine Urobilinogen (Less than 2) mg/dL Ur Leukocyte Esterase (Negative) Urine RBC (0-3) /hpf Urine WBC (0-5) /hpf Urine WBC Clumps (None) Ur Squamous Epith Cells (0-5) /hpf Calcium Oxalate Crystal (None) /hpf Amorphous Sediment (None) /hpf Urine Bacteria (None) /hpf Urine Mucus (Occasional) /lpf Micro UA Comment Ur Microscopic Review Urine Culture Comments Peritoneal RBC 45 H (0-0) /mm3 Periton Nuc Cells 127 H (0-10) /mm3 Periton Neutrophils 5 % Periton Lymphocytes 29 % Peritoneal Monocytes 39 % Periton Mesothelial 22 % Periton Histiocytes 5 % Peritoneal Tot Protein 1.1 gm/dL Peritoneal Albumin 0.4 g/dL Peritoneal LDH 51 U/L Peritoneal Glucose 91 mg/dL Peritoneal Amylase 6 U/L Stool d-3-Xqpiffrjiur (<= 54) mg/dL Anti-Smooth Muscle Ab (Negative) Hepatitis A IgM Ab (Nonreactive) Hep Bs Antigen (Nonreactive) Hep B Core IgM Ab (Nonreactive) Hep C IgG Ab (Nonreactive) Blood Type Blood Type Recheck Antibody Screen 06/07/18 06/07/18 06/07/18 Range/Units 11:20 11:20 15:59 WBC 4.1 (4.0-11.0) th/mm3 RBC 3.54 L (4.00-5.30) mil/mm3 Hgb 12.0 (11.6-15.3) gm/dL Hct 35.8 (35.0-46.0) % MCV 101.1 H (80.0-100.0) fL MCH 34.0 (27.0-34.0) pg MCHC 33.6 (32.0-36.0) % RDW 15.2 (11.6-17.2) % Plt Count 97 L (150-450) th/mm3 MPV 7.5 (7.0-11.0) fL Prelim Diff (Auto) Slide review pending Neut % (Auto) 49.0 (16.0-70.0) % Lymph % (Auto) 35.9 (9.0-44.0) % [place] % (Auto) 10.2 H (0.0-8.0) % Eos % (Auto) 4.1 H (0.0-4.0) % Baso % (Auto) 0.8 (0.0-2.0) % Neut # (Auto) 2.0 (1.8-7.7) th/mm3 Lymph # (Auto) 1.5 (1.0-4.8) th/mm3 [place] # (Auto) 0.4 (0.0-0.9) th/mm3 Eos # (Auto) 0.2 (0.0-0.4) th/mm3 Baso # (Auto) 0.0 (0.0-0.2) th/mm3 WBC Differential . Diff Scan Auto diff confirmed Differential Comment . Platelet Estimate Low L (Normal) Platelet Morphology Normal (Normal) PT (9.8-11.6) sec INR Ratio APTT (23.4-31.7) sec Sodium (136-145) meq/L Potassium (3.5-5.1) meq/L Chloride (98-107) meq/L Carbon Dioxide (21.0-32.0) meq/L Anion Gap (5-15) meq/L BUN (7-18) mg/dL Creatinine (0.50-1.00) mg/dL Estimated GFR (>89) mL/min Random Glucose (74-106) mg/dL Lactic Acid (0.4-2.0) mmol/L Calcium (8.5-10.1) mg/dL Calcium Adj for Albumin (8.5-10.1) mg/dL Magnesium (1.5-2.5) mg/dL Total Bilirubin (0.2-1.0) mg/dL AST (15-37) U/L ALT (10-53) U/L Alkaline Phosphatase (45-117) U/L Lactate Dehydrogenase (84-246) U/L B-Natriuretic Peptide (0-100) pg/mL Total Protein (6.4-8.2) g/dL Albumin (3.4-5.0) g/dL Lipase (73-393) U/L Tumor Marker AFP 4.0 (0.5-8.0) ng/mL CA 125 Antigen (0.0-30.2) U/mL Beta HCG, Quant (0-5) mIU/mL Urine Color (Yellw/Straw) Urine Clarity (Clear) Urine pH (5.0-8.5) Ur Specific [place] (1.002-1.035) Urine Protein (Neg-Trace) mg/dL Urine Glucose (UA) (Negative) mg/dL Urine Ketones (Negative) mg/dL Urine Occult Blood (Negative) Urine Nitrate (Negative) Urine Bilirubin (Negative) Urine Urobilinogen (Less than 2) mg/dL Ur Leukocyte Esterase (Negative) Urine RBC (0-3) /hpf Urine WBC (0-5) /hpf Urine WBC Clumps (None) Ur Squamous Epith Cells (0-5) /hpf Calcium Oxalate Crystal (None) /hpf Amorphous Sediment (None) /hpf Urine Bacteria (None) /hpf Urine Mucus (Occasional) /lpf Micro UA Comment Ur Microscopic Review Urine Culture Comments Peritoneal RBC (0-0) /mm3 Periton Nuc Cells (0-10) /mm3 Periton Neutrophils % Periton Lymphocytes % Peritoneal Monocytes % Periton Mesothelial % Periton Histiocytes % Peritoneal Tot Protein gm/dL Peritoneal Albumin g/dL Peritoneal LDH U/L Peritoneal Glucose mg/dL Peritoneal Amylase U/L Stool [id number] (<= 54) mg/dL Anti-Smooth Muscle Ab (Negative) Hepatitis A IgM Ab Nonreactive (Nonreactive) Hep Bs Antigen Nonreactive (Nonreactive) Hep B Core IgM Ab Nonreactive (Nonreactive) Hep C IgG Ab Reactive H (Nonreactive) Blood Type Blood Type Recheck Antibody Screen 06/07/18 06/07/18 06/08/18 Range/Units 15:59 19:25 09:00 WBC (4.0-11.0) th/mm3 RBC (4.00-5.30) mil/mm3 Hgb (11.6-15.3) gm/dL Hct (35.0-46.0) % MCV (80.0-100.0) fL MCH (27.0-34.0) pg MCHC (32.0-36.0) % RDW (11.6-17.2) % Plt Count (150-450) th/mm3 MPV (7.0-11.0) fL Prelim Diff (Auto) Neut % (Auto) (16.0-70.0) % Lymph % (Auto) (9.0-44.0) % [place] % (Auto) (0.0-8.0) % Eos % (Auto) (0.0-4.0) % Baso % (Auto) (0.0-2.0) % Neut # (Auto) (1.8-7.7) th/mm3 Lymph # (Auto) (1.0-4.8) th/mm3 [place] # (Auto) (0.0-0.9) th/mm3 Eos # (Auto) (0.0-0.4) th/mm3 Baso # (Auto) (0.0-0.2) th/mm3 WBC Differential Diff Scan Differential Comment Platelet Estimate (Normal) Platelet Morphology (Normal) PT (9.8-11.6) sec INR Ratio APTT (23.4-31.7) sec Sodium 141 (136-145) meq/L Potassium 3.7 (3.5-5.1) meq/L Chloride 109 H (98-107) meq/L Carbon Dioxide 26.4 (21.0-32.0) meq/L Anion Gap 6 (5-15) meq/L BUN 9 (7-18) mg/dL Creatinine 0.54 (0.50-1.00) mg/dL Estimated GFR Greater than 89 (>89) mL/min Random Glucose 103 (74-106) mg/dL Lactic Acid (0.4-2.0) mmol/L Calcium 7.5 L (8.5-10.1) mg/dL Calcium Adj for Albumin (8.5-10.1) mg/dL Magnesium (1.5-2.5) mg/dL Total Bilirubin 1.4 H (0.2-1.0) mg/dL AST 238 H (15-37) U/L ALT 131 H (10-53) U/L Alkaline Phosphatase 198 H (45-117) U/L Lactate Dehydrogenase (84-246) U/L B-Natriuretic Peptide (0-100) pg/mL Total Protein 6.1 L (6.4-8.2) g/dL Albumin 2.1 L (3.4-5.0) g/dL Lipase (73-393) U/L Tumor Marker AFP (0.5-8.0) ng/mL CA 125 Antigen (0.0-30.2) U/mL Beta HCG, Quant (0-5) mIU/mL Urine Color (Yellw/Straw) Urine Clarity (Clear) Urine pH (5.0-8.5) Ur Specific [place] (1.002-1.035) Urine Protein (Neg-Trace) mg/dL Urine Glucose (UA) (Negative) mg/dL Urine Ketones (Negative) mg/dL Urine Occult Blood (Negative) Urine Nitrate (Negative) Urine Bilirubin (Negative) Urine Urobilinogen (Less than 2) mg/dL Ur Leukocyte Esterase (Negative) Urine RBC (0-3) /hpf Urine WBC (0-5) /hpf Urine WBC Clumps (None) Ur Squamous Epith Cells (0-5) /hpf Calcium Oxalate Crystal (None) /hpf Amorphous Sediment (None) /hpf Urine Bacteria (None) /hpf Urine Mucus (Occasional) /lpf Micro UA Comment Ur Microscopic Review Urine Culture Comments Peritoneal RBC (0-0) /mm3 [place] Nuc Cells (0-10) /mm3 [place] Neutrophils % [place]iton Lymphocytes % Peritoneal Monocytes % [place] Mesothelial % Periton Histiocytes % Peritoneal Tot Protein gm/dL Peritoneal Albumin g/dL Peritoneal LDH U/L Peritoneal Glucose mg/dL Peritoneal Amylase U/L Stool [id number] Less than 11 (<= 54) mg/dL Anti-Smooth Muscle Ab Negative (Negative) Hepatitis A IgM Ab (Nonreactive) Hep Bs Antigen (Nonreactive) Hep B Core IgM Ab (Nonreactive) Hep C IgG Ab (Nonreactive) Blood Type Blood Type Recheck Antibody Screen 06/08/18 06/08/18 06/09/18 Range/Units 09:00 09:00 06:03 WBC 4.6 5.2 (4.0-11.0) th/mm3 RBC 3.55 L 3.66 L (4.00-5.30) mil/mm3 Hgb 12.4 12.5 (11.6-15.3) gm/dL Hct 36.0 36.3 (35.0-46.0) % MCV 101.5 H 99.3 (80.0-100.0) fL MCH 34.9 H 34.2 H (27.0-34.0) pg MCHC 34.4 34.5 (32.0-36.0) % RDW 14.6 15.0 (11.6-17.2) % Plt Count 102 L 122 L (150-450) th/mm3 MPV 7.5 7.9 (7.0-11.0) fL Prelim Diff (Auto) Neut % (Auto) 62.0 52.3 (16.0-70.0) % Lymph % (Auto) 24.4 33.6 (9.0-44.0) % [place] % (Auto) 9.3 H 8.9 H (0.0-8.0) % Eos % (Auto) 3.8 4.5 H (0.0-4.0) % Baso % (Auto) 0.5 0.7 (0.0-2.0) % Neut # (Auto) 2.8 2.7 (1.8-7.7) th/mm3 Lymph # (Auto) 1.1 1.7 (1.0-4.8) th/mm3 [place] # (Auto) 0.4 0.5 (0.0-0.9) th/mm3 Eos # (Auto) 0.2 0.2 (0.0-0.4) th/mm3 Baso # (Auto) 0.0 0.0 (0.0-0.2) th/mm3 WBC Differential . . Diff Scan Differential Comment Auto diff final Auto diff final Platelet Estimate (Normal) Platelet Morphology (Normal) PT 14.8 H (9.8-11.6) sec INR 1.5 Ratio APTT 31.5 (23.4-31.7) sec Sodium (136-145) meq/L Potassium (3.5-5.1) meq/L Chloride (98-107) meq/L Carbon Dioxide (21.0-32.0) meq/L Anion Gap (5-15) meq/L BUN (7-18) mg/dL Creatinine (0.50-1.00) mg/dL Estimated GFR (>89) mL/min Random Glucose (74-106) mg/dL Lactic Acid (0.4-2.0) mmol/L Calcium (8.5-10.1) mg/dL Calcium Adj for Albumin (8.5-10.1) mg/dL Magnesium (1.5-2.5) mg/dL Total Bilirubin (0.2-1.0) mg/dL AST (15-37) U/L ALT (10-53) U/L Alkaline Phosphatase (45-117) U/L Lactate Dehydrogenase (84-246) U/L B-Natriuretic Peptide (0-100) pg/mL Total Protein (6.4-8.2) g/dL Albumin (3.4-5.0) g/dL Lipase (73-393) U/L Tumor Marker AFP (0.5-8.0) ng/mL CA 125 Antigen (0.0-30.2) U/mL Beta HCG, Quant (0-5) mIU/mL Urine Color (Yellw/Straw) Urine Clarity (Clear) Urine pH (5.0-8.5) Ur Specific [place] (1.002-1.035) Urine Protein (Neg-Trace) mg/dL Urine Glucose (UA) (Negative) mg/dL Urine Ketones (Negative) mg/dL Urine Occult Blood (Negative) Urine Nitrate (Negative) Urine Bilirubin (Negative) Urine Urobilinogen (Less than 2) mg/dL Ur Leukocyte Esterase (Negative) Urine RBC (0-3) /hpf Urine WBC (0-5) /hpf Urine WBC Clumps (None) Ur Squamous Epith Cells (0-5) /hpf Calcium Oxalate Crystal (None) /hpf Amorphous Sediment (None) /hpf Urine Bacteria (None) /hpf Urine Mucus (Occasional) /lpf Micro UA Comment Ur Microscopic Review Urine Culture Comments Peritoneal RBC (0-0) /mm3 [place] Nuc Cells (0-10) /mm3 [place] Neutrophils % [place]iton Lymphocytes % Peritoneal Monocytes % [place] Mesothelial % [place]iton Histiocytes % Peritoneal Tot Protein gm/dL Peritoneal Albumin g/dL Peritoneal LDH U/L Peritoneal Glucose mg/dL Peritoneal Amylase U/L Stool [id number] (<= 54) mg/dL Anti-Smooth Muscle Ab (Negative) Hepatitis A IgM Ab (Nonreactive) Hep Bs Antigen (Nonreactive) Hep B Core IgM Ab (Nonreactive) Hep C IgG Ab (Nonreactive) Blood Type Blood Type Recheck Antibody Screen 06/09/18 Range/Units 06:03 WBC (4.0-11.0) th/mm3 RBC (4.00-5.30) mil/mm3 Hgb (11.6-15.3) gm/dL Hct (35.0-46.0) % MCV (80.0-100.0) fL MCH (27.0-34.0) pg MCHC (32.0-36.0) % RDW (11.6-17.2) % Plt Count (150-450) th/mm3 MPV (7.0-11.0) fL Prelim Diff (Auto) Neut % (Auto) (16.0-70.0) % Lymph % (Auto) (9.0-44.0) % [place] % (Auto) (0.0-8.0) % Eos % (Auto) (0.0-4.0) % Baso % (Auto) (0.0-2.0) % Neut # (Auto) (1.8-7.7) th/mm3 Lymph # (Auto) (1.0-4.8) th/mm3 [place] # (Auto) (0.0-0.9) th/mm3 Eos # (Auto) (0.0-0.4) th/mm3 Baso # (Auto) (0.0-0.2) th/mm3 WBC Differential Diff Scan Differential Comment Platelet Estimate (Normal) Platelet Morphology (Normal) PT (9.8-11.6) sec INR Ratio APTT (23.4-31.7) sec Sodium 140 (136-145) meq/L Potassium 3.7 (3.5-5.1) meq/L Chloride 107 (98-107) meq/L Carbon Dioxide 27.1 (21.0-32.0) meq/L Anion Gap 6 (5-15) meq/L BUN 8 (7-18) mg/dL Creatinine 0.48 L (0.50-1.00) mg/dL Estimated GFR Greater than 89 (>89) mL/min Random Glucose 69 L (74-106) mg/dL Lactic Acid (0.4-2.0) mmol/L Calcium 7.3 L* (8.5-10.1) mg/dL Calcium Adj for Albumin 8.9 (8.5-10.1) mg/dL Magnesium (1.5-2.5) mg/dL Total Bilirubin (0.2-1.0) mg/dL AST (15-37) U/L ALT (10-53) U/L Alkaline Phosphatase (45-117) U/L Lactate Dehydrogenase (84-246) U/L B-Natriuretic Peptide (0-100) pg/mL Total Protein (6.4-8.2) g/dL Albumin 2.0 L (3.4-5.0) g/dL Lipase (73-393) U/L Tumor Marker AFP (0.5-8.0) ng/mL CA 125 Antigen (0.0-30.2) U/mL Beta HCG, Quant (0-5) mIU/mL Urine Color (Yellw/Straw) Urine Clarity (Clear) Urine pH (5.0-8.5) Ur Specific [place] (1.002-1.035) Urine Protein (Neg-Trace) mg/dL Urine Glucose (UA) (Negative) mg/dL Urine Ketones (Negative) mg/dL Urine Occult Blood (Negative) Urine Nitrate (Negative) Urine Bilirubin (Negative) Urine Urobilinogen (Less than 2) mg/dL Ur Leukocyte Esterase (Negative) Urine RBC (0-3) /hpf Urine WBC (0-5) /hpf Urine WBC Clumps (None) Ur Squamous Epith Cells (0-5) /hpf Calcium Oxalate Crystal (None) /hpf Amorphous Sediment (None) /hpf Urine Bacteria (None) /hpf Urine Mucus (Occasional) /lpf Micro UA Comment Ur Microscopic Review Urine Culture Comments Peritoneal RBC (0-0) /mm3 [place] Nuc Cells (0-10) /mm3 [place] Neutrophils % [place] Lymphocytes % Peritoneal Monocytes % [place] Mesothelial % Periton Histiocytes % Peritoneal Tot Protein gm/dL Peritoneal Albumin g/dL Peritoneal LDH U/L Peritoneal Glucose mg/dL Peritoneal Amylase U/L Stool [id number] (<= 54) mg/dL Anti-Smooth Muscle Ab (Negative) Hepatitis A IgM Ab (Nonreactive) Hep Bs Antigen (Nonreactive) Hep B Core IgM Ab (Nonreactive) Hep C IgG Ab (Nonreactive) Blood Type Blood Type Recheck Antibody Screen Imaging Data Radiologist's impression: Abdomen/Pelvis CT 06/05/18 19:22 CONCLUSION: 1. Interval development of severe ascites and bilateral abdominal wall fluid. 2. Low-density cystic right pelvic mass is similar to prior. Chest X-Ray 06/05/18 19:24 CONCLUSION: The lungs are clear. Paracentesis Ultrasound 06/07/18 00:00 CONCLUSION: 1. Uncomplicated paracentesis. Discharge Plan Discharge Disposition Patient Disposition: ED Admit(ED Internal Use Only) Discharge Condition Condition: Stable Discharge Order Discharge Orders: Discharge Order (Routine); Ordered 06/09/18 Ordered By: An Nunez ED Use Only Admit Order (Routine); Ordered 06/05/18 Ordered By: Zainab Lopez Physicians Team ED Provider: Zainab Lopez Primary Care Provider: Miguel Torres Attending Provider: Cynthia Saleem Other Providers: [employer],Insurance ; Franck Concepcion V ; Zoila Triplett Status ED Status: Left Department Discharge Information Discharge Date/Time: 06/06/18 00:35
[2018-06-05] MEDS ORDERED: Heparin - SQ 10,000 UNITS/ML Vial SQ ONE (23:30)
[2018-06-06] MEDS: Sod Chloride 0.9% Inj 1,000 ML IV.CONT SCH ×3 (02:29→16:26)
[2018-06-06 08:49] LABS: Baso % (Auto) 0.6 % (0.0-2.0); Eos # (Auto) 0.2 th/mm3 (0.0-0.4); Eos % (Auto) 4.1 % (0.0-4.0); Hematocrit 34.4 % (35.0-46.0); Hemoglobin 11.9 gm/dL (11.6-15.3); Lymph # (Auto) 1.5 th/mm3 (1.0-4.8); Mean Corpuscular HGB Conc 34.6 % (32.0-36.0); Mean Corpuscular Hemoglobin 35.2 pg (27.0-34.0); Mean Corpuscular Volume 101.9 fL (80.0-100.0); Mean Platelet Volume 7.8 fL (7.0-11.0); Mono # (Auto) 0.4 th/mm3 (0.0-0.9); Mono % (Auto) 9.8 % (0.0-8.0); Neut # (Auto) 2.3 th/mm3 (1.8-7.7); Neut % (Auto) 51.5 % (16.0-70.0); Platelet Count 104 th/mm3 (150-450); Red Blood Count 3.38 mil/mm3 (4.00-5.30); Red Cell Distribution Width 14.9 % (11.6-17.2); White Blood Count 4.5 th/mm3 (4.0-11.0)
[2018-06-06 09:15] LABS: Albumin 1.8 g/dL (3.4-5.0); Anion Gap 7 meq/L (5-15); Aspartate Aminotransferase 199 U/L (15-37); Blood Urea Nitrogen 10 mg/dL (7-18); Calcium 7.6 mg/dL (8.5-10.1); Carbon Dioxide 22.9 meq/L (21.0-32.0); Chloride 111 meq/L (98-107); Glomerular Filtration Rate Greater Than 89 mL/min (>89); Glucose,Random 67 mg/dL (74-106); Potassium 3.7 meq/L (3.5-5.1); Sodium 141 meq/L (136-145)
--- NOTE | 2018-06-06 09:18 | P.HPFP ---
History of Present Illness Primary Care Physician: Miguel Torres MD History of Present Illness: Ms Eli is a 52-year-old female who presented to the ED with lower abdominal pain and abdominal distention. Patient has a history of right ovarian mass. States that she was told about this around 9 months ago. Was supposed to follow-up with Dr. Santos at [facility]. States that her appointment is not until June 25. Upon EMR review, patient was seen in the ED in 2016 and was diagnosed with right ovarian mass. Patient had appointment to follow with Dr. Triplett. Unsure if she ever followed up. She reports trouble with transportation. She reports increased abdominal distention for the past month. States that she has worsening abdominal pain for the past 2 weeks. Describes it as sharp, intermittent, located in the lower abdominal region. Rates the pain at 8 out of 10, but relieved with morphine. States that she was recently prescribed tramadol by her PCP for pain relief. Reports that she has gained about 50 pounds over the past couple months. Last bowel movement was this morning, she states it was normal. Denies fevers, night sweats, diarrhea, nausea vomiting, and dysuria. 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 This includes certification that hospital inpatient services are reasonable and necessary and in the case of services not specified as inpatient-only under 42 CFR 419.22(n), that they are appropriately provided as inpatient services in accordance to with the 2-midnight benchmark under 43 CFR 412.3(e) Estimated Total Length of Stay (Days): 2 Plans for Post Hospital Care: Not yet determined Review of Systems Constitutional: Denies anorexia, Denies fatigue Gastrointestinal: Reports abdominal pain, Reports bloating, Denies black, tarry stools Musculoskeletal: Denies abnormal walking PMFSH - History History Provided By: Patient - Surgical History Surgical History: Surgical History (Last Reviewed 06/05/18 @ 23:24 by Zainab Lopez MD) H/O: - Tobacco History Second Hand Smoke Exposure: No Tobacco Use In Past 30 Days: No Smoking Status: Never smoker - Alcohol History How Often Do You Have a Drink Containing Alcohol: Never - Substance Use History Substance History: Active Abuse - Substance Use Type Marijuana Status: Active Route Used: Inhalation Reason for Use: Get High - Travel History Recent Travel in the [place] Within the Last 8 Weeks: No Recent Travel Out of the Country Within the Last 8 Weeks: No - Immunization History Tetanus Immunization: Unsure Medications and Allergies Active Medications: Active Medications Enoxaparin Sodium (Lovenox Inj) 40 mg SQ DAILY ANETTE Sodium Chloride (Ns Inj) 1,000 mls @ 143 mls/hr IV.CONT .Q7H ANETTE Last Admin: 06/06/18 02:29 Dose: 143 mls/hr Ceftriaxone Sodium 1,000 mg/ (Sodium Chloride) 100 mls @ 200 mls/hr IV.SIG Q24H ANETTE Ibuprofen (Motrin) 400 mg PO Q6H PRN PRN Reason: PAIN SCALE 1 TO 2 Morphine Sulfate (Morphine Inj) 4 mg IV.PUSH Q3H PRN PRN Reason: BREAKTHROUGH PAIN Naloxone HCl (Narcan Inj) 0.4 mg IV.PUSH UNSCH PRN PRN Reason: SEE LABEL COMMENTS Ondansetron HCl (Zofran Inj) 4 mg IV.PUSH Q6H PRN PRN Reason: NAUSEA OR VOMITING Sodium Chloride (Ns Flush) 2 ml IV.FLUSH BID ANETTE Sodium Chloride (Ns Flush) 2 ml IV.FLUSH PRN PRN PRN Reason: FLUSH AFTER USING IV ACCESS Tramadol HCl (Ultram) 50 mg PO Q4H PRN PRN Reason: PAIN SCALE 3 TO 5 Tramadol HCl (Ultram) 100 mg PO Q4H PRN PRN Reason: PAIN SCALE 6 TO 10 Allergies Allergy/AdvReac Type Severity Reaction Status Date / Time acetaminophen Allergy Intermediate Nausea/Vomi Verified 06/05/18 20:57 ting hydrocodone AdvReac Mild Nausea/Vomi Verified 06/05/18 20:57 ting *MDRO Multi-Drug Resistant AdvReac Unknown Nausea/Vomi Uncoded 06/05/18 20:57 Organism ting Home Medications Medication Instructions Recorded Confirmed Type tramadol 50 mg PO QID 06/05/18 06/05/18 History Exam Vital signs: Vital Signs 06/05/18 18:03 06/05/18 21:00 06/05/18 23:26 Temperature 97.9 F Pulse Rate 81 72 69 Respiratory Rate 16 18 18 Blood Pressure 131/81 141/67 H 144/70 H Pulse Oximetry 97 99 99 06/05/18 23:27 06/06/18 00:00 06/06/18 04:00 Temperature 97.8 F Pulse Rate 71 74 Respiratory Rate 18 16 16 Blood Pressure 139/75 140/62 Pulse Oximetry 99 97 95 06/06/18 07:30 Temperature 98.2 F Pulse Rate 75 Respiratory Rate 18 Blood Pressure 129/69 Pulse Oximetry 95 Intake & Output 06/05/18 06/06/18 06/06/18 18:59 06:59 18:59 Intake Total 672 / 672 Balance 672 / 672 Weight 113.398 kg 113.398 kg Intake: IV 100 / 100 Rocephin Inj 1,000 MG In NS Inj 100 / 100 100 ML @ 200 mls/hr IV.SIG ONCE ONE Rx#:[id number] Other 572 / 572 Other: Other Intake Source Saline Solution # Voids 2 Date of Last Bowel Movement 06/04/18 Weight On Admission 113.398 kg - Constitutional mild distress, obese, cooperative - Routine HEENT Exam Head: Present: normocephalic, atraumatic Eye: Present: EOMI. Absent: nystagmus ENT: Present: mucous membranes moist - Routine Neck Exam Present: supple, full ROM. Absent: tracheal deviation - Routine Chest/Breast/Axilla Exam Chest wall: Absent: tenderness - Routine Respiratory Exam Present: CTA bilaterally. Absent: accessory muscle use, decreased breath sounds , prolonged expiratory phase, rales, respiratory distress - Routine Cardiovascular Exam Present: RRR. Absent: murmur, gallop, rubs - Routine Abdominal Exam Present: soft, distended, firm, mass. Absent: guarding, hernia, wound - Routine Extremities Exam Present: full ROM. Absent: cyanosis, clubbing, edema - Routine Skin Exam Present: intact, dry - Routine Neurological Exam Present: alert, oriented X3. Absent: sensory deficit, motor deficit Results - Labs Result diagrams: 06/06/18 08:07 06/06/18 08:07 Abnormal lab results 06/05/18 06/05/18 06/05/18 Range/Units 19:37 19:37 19:37 RBC 3.73 L (4.00-5.30) mil/mm3 Hct (35.0-46.0) % MCV (80.0-100.0) fL MCH (27.0-34.0) pg Plt Count 117 L (150-450) th/mm3 [place] % (Auto) 10.8 H (0.0-8.0) % Eos % (Auto) (0.0-4.0) % PT 14.0 H (9.8-11.6) sec Chloride (98-107) meq/L Creatinine (0.50-1.00) mg/dL Random Glucose (74-106) mg/dL Calcium 8.0 L (8.5-10.1) mg/dL Total Bilirubin 2.0 H (0.2-1.0) mg/dL AST 220 H (15-37) U/L ALT 129 H (10-53) U/L Alkaline Phosphatase 190 H (45-117) U/L Albumin 2.0 L (3.4-5.0) g/dL Urine Clarity (Clear) Urine Protein (Neg-Trace) mg/dL Urine Occult Blood (Negative) Urine Nitrate (Negative) Ur Leukocyte Esterase (Negative) Urine RBC (0-3) /hpf Urine WBC Clumps (None) Calcium Oxalate Crystal (None) /hpf Amorphous Sediment (None) /hpf Urine Bacteria (None) /hpf Urine Mucus (Occasional) /lpf 06/05/18 06/06/18 06/06/18 Range/Units 20:45 08:07 08:07 RBC 3.38 L (4.00-5.30) mil/mm3 Hct 34.4 L (35.0-46.0) % MCV 101.9 H (80.0-100.0) fL MCH 35.2 H (27.0-34.0) pg Plt Count 104 L (150-450) th/mm3 [place] % (Auto) 9.8 H (0.0-8.0) % Eos % (Auto) 4.1 H (0.0-4.0) % PT (9.8-11.6) sec Chloride 111 H (98-107) meq/L Creatinine 0.40 L (0.50-1.00) mg/dL Random Glucose 67 L (74-106) mg/dL Calcium 7.6 L (8.5-10.1) mg/dL Total Bilirubin (0.2-1.0) mg/dL AST 199 H (15-37) U/L ALT (10-53) U/L Alkaline Phosphatase (45-117) U/L Albumin 1.8 L (3.4-5.0) g/dL Urine Clarity Cloudy H (Clear) Urine Protein 30 H (Neg-Trace) mg/dL Urine Occult Blood Large H (Negative) Urine Nitrate Positive H (Negative) Ur Leukocyte Esterase Large H (Negative) Urine RBC 76 H (0-3) /hpf Urine WBC Clumps Many H (None) Calcium Oxalate Crystal Occasional H (None) /hpf Amorphous Sediment Rare H (None) /hpf Urine Bacteria Occasional H (None) /hpf Urine Mucus Few H (Occasional) /lpf Short CBC 06/05/18 06/06/18 Range/Units 19:37 08:07 WBC 4.8 4.5 (4.0-11.0) th/mm3 Hgb 12.5 11.9 (11.6-15.3) gm/dL Hct 37.1 34.4 L (35.0-46.0) % Plt Count 117 L 104 L (150-450) th/mm3 BMP 06/05/18 06/06/18 19:37 08:07 Sodium 139 141 Potassium 4.2 3.7 Chloride 107 111 H Carbon Dioxide 26.1 22.9 BUN 12 10 Creatinine 0.58 0.40 L Calcium 8.0 L 7.6 L Liver Function 06/05/18 06/06/18 Range/Units 19:37 08:07 Total Bilirubin 2.0 H (0.2-1.0) mg/dL AST 220 H 199 H (15-37) U/L ALT 129 H (10-53) U/L Alkaline Phosphatase 190 H (45-117) U/L Albumin 2.0 L 1.8 L (3.4-5.0) g/dL Urine 06/05/18 Range/Units 20:45 Urine Color [place] (Yellw/Straw) Urine Clarity Cloudy H (Clear) Urine pH 6.0 (5.0-8.5) Ur Specific [place] 1.016 (1.002-1.035) Urine Protein 30 H (Neg-Trace) mg/dL Urine Glucose (UA) Negative (Negative) mg/dL - Imaging Impressions Abdomen/Pelvis CT 06/05/18 19:22 CONCLUSION: 1. Interval development of severe ascites and bilateral abdominal wall fluid. 2. Low-density cystic right pelvic mass is similar to prior. Chest X-Ray 06/05/18 19:24 CONCLUSION: The lungs are clear. Caprini VTE Risk Assessment Caprini VTE Risk Assessment: No/Low Risk (score <= 1) Caprini Risk Assessment Model: Point Value = 1 Point Value = 2 Point Value = 3 Point Value = 5 Age 41-60 Minor surgery BMI > 25 kg/m2 Swollen legs Varicose veins or History of unexplained or recurrent spontaneous Oral contraceptives or hormone replacement Sepsis (< 1 month) Serious lung disease, including pneumonia (< 1 month) Abnormal pulmonary function Acute myocardial infarction Congestive heart failure (< 1 month) History of inflammatory bowel disease Medical patient at bed rest Age 61-74 Arthroscopic surgery Major open surgery (> 45 min) Laparoscopic surgery (> 45 min) Malignancy Confined to bed (> 72 hours) Immobilizing plaster cast Central venous access Age >= 75 History of VTE Family history of VTE Factor V Leiden Prothrombin [id number] Lupus anticoagulant Anticardiolipin antibodies Elevated serum homocysteine Heparin-induced thrombocytopenia Other congenital or acquired thrombophilia Stroke (< 1 month) Elective arthroplasty Hip, pelvis, or leg fracture Acute spinal cord injury (< 1 month) Prophylaxis Regimen: Total Risk Factor Score Risk Level Prophylaxis Regimen 0-1 Low Early ambulation 2 Moderate Order ONE of the following: *Sequential Compression Device (SCD) *Heparin 5000 units SQ BID 3-4 Higher Order ONE of the following medications: *Heparin 5000 units SQ TID *Enoxaparin/Lovenox 40 mg SQ daily (WT < 150 kg, CrCl > 30 mL/min) *Enoxaparin/Lovenox 30 mg SQ daily (WT < 150 kg, CrCl > 10-29 mL/min) *Enoxaparin/Lovenox 30 mg SQ BID (WT < 150 kg, CrCl > 30 mL/min) AND/OR *Sequential Compression Device (SCD) 5 or more Highest Order ONE of the following medications: *Heparin 5000 units SQ TID (Preferred with Epidurals) *Enoxaparin/Lovenox 40 mg SQ daily (WT < 150 kg, CrCl > 30 mL/min) *Enoxaparin/Lovenox 30 mg SQ daily (WT < 150 kg, CrCl > 10-29 mL/min) *Enoxaparin/Lovenox 30 mg SQ BID (WT < 150 kg, CrCl > 30 mL/min) AND *Sequential Compression Device (SCD) Assessment and Plan - Assessment (1) Ovarian mass Code(s): N83.9 - Noninflammatory disorder of ovary, fallopian tube and broad ligament, unspecified Status: Acute (2) UTI (urinary tract infection) Code(s): N39.0 - Urinary tract infection, site not specified Status: Acute (3) Ascites Code(s): R18.8 - Other ascites Status: Acute (4) Abdominal pain Code(s): R10.9 - Unspecified abdominal pain Status: Acute - Assessment and Plan 52-year-old female presents the ED with abdominal pain and distention secondary to right ovarian mass. Ovarian mass/ascites/abdominal pain -History of right ovarian mass, patient lost to follow-up -Abdominal pelvis CT demonstrates interval development of severe ascites and bilateral abdominal wall fluid. Low density cystic right pelvic mass similar to prior. Measures 10.8 cm, previously measured 11.7 cm. 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 after midnight -MIVF -Tramadol as needed for pain, morphine for breakthrough -Per discussion with DISTRIBUTION SALES REPRESENTATIVE onc, the ascites could be a separate problem. Fortunately this mass has not increased in size. This patient is ready to have surgery if needed. UTI -Suspect patient has UTI secondary to urinary retention due to ovarian mass -UA positive for occult blood, nitrates, leukocyte esterases, and bacteria -Urine culture pending -Continue Rocephin 1 g q24h DVT prophylaxis: Hypercoagulable, heparin x1; will restart once patient has completed surgical intervention H&P: Quality - VTE Deep Vein Thrombosis/Pulmonary Embolism Present on Admission: No
[2018-06-06 09:19] LABS: Alanine Aminotransferase 116 U/L (10-53); Alkaline Phosphatase 152 U/L (45-117); Total Protein 6.1 g/dL (6.4-8.2)
[2018-06-06] MEDS: Enoxaparin Inj 40 MG/0.4 ML Syringe SQ SCH (11:04)
[2018-06-07] MEDS: Sod Chloride 0.9% Inj 1,000 ML IV.CONT SCH ×3 (04:08→12:51)
[2018-06-07] MEDS ORDERED: Haloperidol Inj 5 MG/ML Ampul IV.PUSH PRN (11:16)
[2018-06-07] MEDS ORDERED: LORazepam 1 MG Tablet PO PRN (11:16)
[2018-06-07 11:43] LABS: Baso % (Auto) 0.8 % (0.0-2.0); Eos # (Auto) 0.2 th/mm3 (0.0-0.4); Eos % (Auto) 4.1 % (0.0-4.0); Hematocrit 35.8 % (35.0-46.0); Lymph # (Auto) 1.5 th/mm3 (1.0-4.8); Lymph % (Auto) 35.9 % (9.0-44.0); Mean Corpuscular HGB Conc 33.6 % (32.0-36.0); Mean Corpuscular Volume 101.1 fL (80.0-100.0); Mean Platelet Volume 7.5 fL (7.0-11.0); Mono # (Auto) 0.4 th/mm3 (0.0-0.9); Mono % (Auto) 10.2 % (0.0-8.0); Platelet Count 97 th/mm3 (150-450); Red Blood Count 3.54 mil/mm3 (4.00-5.30); Red Cell Distribution Width 15.2 % (11.6-17.2); White Blood Count 4.1 th/mm3 (4.0-11.0)
--- NOTE | 2018-06-07 11:51 | P.PNFP ---
Subjective Interval history: No acute events overnight. s/p paracentesis, states that she had 12L of fluid drained Doing well Boyfriend at bedside Patient states she has hx of heavy drinking and quit a couple of years ago Reports that she had a normal BM this morning Denies CP, SOB, and N/V <An Nunez T - 06/07/18 12:09> Results - Labs Result diagrams: 06/09/18 06:03 06/09/18 06:03 <Cynthia Saleem - 06/10/18 13:40> Abnormal lab results 06/05/18 06/06/18 06/07/18 Range/Units 20:45 12:09 06:06 RBC (4.00-5.30) mil/mm3 MCV (80.0-100.0) fL Plt Count (150-450) th/mm3 [place] % (Auto) (0.0-8.0) % Eos % (Auto) (0.0-4.0) % Lactate Dehydrogenase 251 H (84-246) U/L CA 125 Antigen 841.4 H (0.0-30.2) U/mL Urine Clarity Cloudy H (Clear) Urine Protein 30 H (Neg-Trace) mg/dL Urine Occult Blood Large H (Negative) Urine Nitrate Positive H (Negative) Ur Leukocyte Esterase Large H (Negative) Urine RBC 76 H (0-3) /hpf Urine WBC Clumps Many H (None) Calcium Oxalate Crystal Occasional H (None) /hpf Amorphous Sediment Rare H (None) /hpf Urine Bacteria Occasional H (None) /hpf Urine Mucus Few H (Occasional) /lpf 06/07/18 Range/Units 11:20 RBC 3.54 L (4.00-5.30) mil/mm3 MCV 101.1 H (80.0-100.0) fL Plt Count 97 L (150-450) th/mm3 [place] % (Auto) 10.2 H (0.0-8.0) % Eos % (Auto) 4.1 H (0.0-4.0) % Lactate Dehydrogenase (84-246) U/L CA 125 Antigen (0.0-30.2) U/mL Urine Clarity (Clear) Urine Protein (Neg-Trace) mg/dL Urine Occult Blood (Negative) Urine Nitrate (Negative) Ur Leukocyte Esterase (Negative) Urine RBC (0-3) /hpf Urine WBC Clumps (None) Calcium Oxalate Crystal (None) /hpf Amorphous Sediment (None) /hpf Urine Bacteria (None) /hpf Urine Mucus (Occasional) /lpf Short CBC 06/07/18 Range/Units 11:20 WBC 4.1 (4.0-11.0) th/mm3 Hgb 12.0 (11.6-15.3) gm/dL Hct 35.8 (35.0-46.0) % Plt Count 97 L (150-450) th/mm3 Urine 06/05/18 Range/Units 20:45 Urine Color [place] (Yellw/Straw) Urine Clarity Cloudy H (Clear) Urine pH 6.0 (5.0-8.5) Ur Specific [place] 1.016 (1.002-1.035) Urine Protein 30 H (Neg-Trace) mg/dL Urine Glucose (UA) Negative (Negative) mg/dL <Tae CrespoAn Phillips T - 06/07/18 11:51> Physical Exam Vital signs: Vital Signs 06/09/18 16:00 Temperature 98.1 F Pulse Rate 60 Respiratory Rate 18 Blood Pressure 100/59 L Pulse Oximetry 96 Intake & Output 06/09/18 06/10/18 06/10/18 18:59 06:59 18:59 Other: Date of Last Bowel Movement 06/09/18 <Cynthia Saleem M - 06/10/18 13:40> Vital Signs 06/06/18 15:19 06/06/18 20:00 06/06/18 21:20 Temperature 98.1 F 98.5 F 98.5 F Pulse Rate 72 74 80 Respiratory Rate 18 16 16 Blood Pressure 127/69 121/69 124/88 Pulse Oximetry 96 99 98 06/07/18 00:44 06/07/18 04:00 06/07/18 08:00 Temperature 99.0 F 98.2 F 97.9 F Pulse Rate 80 73 74 Respiratory Rate 20 18 16 Blood Pressure 121/81 103/73 113/71 Pulse Oximetry 96 95 96 06/07/18 09:03 06/07/18 10:34 06/07/18 10:53 Temperature 98.3 F 97.8 F Pulse Rate 64 66 64 Respiratory Rate 18 18 18 Blood Pressure 135/79 117/63 110/64 Pulse Oximetry 95 96 96 06/07/18 11:11 Temperature 97.5 F L Pulse Rate 65 Respiratory Rate 16 Blood Pressure 132/74 Pulse Oximetry 99 Intake & Output 06/06/18 06/07/18 06/07/18 18:59 06:59 18:59 Intake Total 1999 1580 / 1580 Balance 1999 1580 / 1580 Intake: IV 1999 1100 / 1100 NS Inj 1,000 ML @ 143 mls/hr IV 1999 1000 / 1000 .CONT .Q7H ANETTE Rx#:[id number] Rocephin Inj 1,000 MG In NS Inj 100 / 100 100 ML @ 200 mls/hr IV.SIG Q24H ANETTE Rx#:[id number] Oral 480 / 480 Other: # Voids 600 Date of Last Bowel Movement 06/05/18 <[place] [facility] 06/07/18 11:51> - Constitutional no acute distress, obese [facility] 12:09> - Routine Respiratory Exam Present: CTA bilaterally. Absent: wheezes, crackles <[place] CherieAn [facility] 12:09> - Routine Cardiovascular Exam Present: RRR, S1, S2. Absent: murmur, gallop, rubs <[place] CherieAn [facility] 12:09> - Routine Abdominal Exam Present: soft [facility] 12:09> Comments: hypoactive bowel sounds, slight tenderness around site of paracentesis [facility]/07/18 12:09> - Routine Extremities Exam Present: edema. Absent: cyanosis <[place] CherieAn [facility] 06/07/18 12:09> Comments: 2+ pitting edema [facility] 06/07/18 12:09> - Routine Neurological Exam Present: alert, oriented X3 <[facility] 06/07/18 12:09> Assessment and Plan - Assessment (1) Ovarian mass Code(s): N83.9 - Noninflammatory disorder of ovary, fallopian tube and broad ligament, unspecified Status: Acute (2) UTI (urinary tract infection) Code(s): N39.0 - Urinary tract infection, site not specified Status: Acute (3) Ascites Code(s): R18.8 - Other ascites Status: Acute (4) Abdominal pain Code(s): R10.9 - Unspecified abdominal pain Status: Acute (5) Hepatitis C Code(s): B19.20 - Unspecified viral hepatitis C without hepatic coma Status: Acute <Cynthia Saleem Ovi - 06/10/18 13:40> (1) Ovarian mass Code(s): N83.9 - Noninflammatory disorder of ovary, fallopian tube and broad ligament, unspecified Status: Acute (2) UTI (urinary tract infection) Code(s): N39.0 - Urinary tract infection, site not specified Status: Acute (3) Ascites Code(s): R18.8 - Other ascites Status: Acute (4) Abdominal pain Code(s): R10.9 - Unspecified abdominal pain Status: Acute <An Nunez - 06/07/18 12:10> - Assessment and Plan 52-year-old female presents the ED with abdominal pain and distention secondary to right ovarian mass. Elevated LFTs/Ascites -Patient reports heavy drinking history -s/p paracentesis 06/07, 12 L of fluid drained per patient, peritoneal fluid analysis ordered -AST elevated at 224, ALT elevated at 123, Alk phos 153, T. bili 1.8, LDH 251 -Hepatitis panel pending -GI consulted, appreciate recommendations Ovarian mass -History of right ovarian mass -Abdominal pelvis CT demonstrates interval development of severe ascites and bilateral abdominal wall fluid. Low density cystic right pelvic mass similar to prior. Measures 10.8 cm, previously measured 11.7 cm. -CA 125, 841.4, possibly elevated due to liver issues -Per discussion with [facility] onc, the ascites could be a separate problem. Fortunately this mass has not increased in size. No surgical intervention at this time. Recommend f/u with Dr. Santos at [facility] UTI -UA positive for occult blood, nitrates, leukocyte esterases, and bacteria -Urine culture positive for E.coli, resistant to bactrim and cipro, sensitive to cephalosporins, will sent patient out on keflex -Continue Rocephin 1 g q24h Diet: Regular Fluids: none DVT prophylaxis: Lovenox q24h <An Nunez T - 06/07/18 12:15> - Attending Attestation The exam, history, and the medical decision-making described in the above note were completed with the assistance of the resident physician. I reviewed and agree with the findings presented. I attest that I had a [id number] encounter with the patient on the same day, and personally performed and documented my assessment and findings in the medical record. she fortunately has no ovarian cancer. <Cynthia Saleem - 06/10/18 13:40>
[2018-06-07 12:00] LABS: Alanine Aminotransferase 123 U/L (10-53); Albumin 1.8 g/dL (3.4-5.0); Alkaline Phosphatase 153 U/L (45-117); Anion Gap 5 meq/L (5-15); Aspartate Aminotransferase 224 U/L (15-37); Blood Urea Nitrogen 12 mg/dL (7-18); Calcium 7.4 mg/dL (8.5-10.1); Carbon Dioxide 28.2 meq/L (21.0-32.0); Chloride 108 meq/L (98-107); Glomerular Filtration Rate Greater Than 89 mL/min (>89); Glucose,Random 75 mg/dL (74-106); Potassium 3.9 meq/L (3.5-5.1); Sodium 141 meq/L (136-145); Total Protein 6.1 g/dL (6.4-8.2)
[2018-06-07 12:17] LABS: Total Protein,Peritoneal Fluid 1.1 gm/dL
--- NOTE | 2018-06-07 12:25 | US ---
EXAM DATE: 06/07/2018 11:06 AM EST AGE/SEX: 53 years / Female INDICATIONS: Ascites. CLINICAL DATA: This is the patient's initial encounter. Patient reports that signs and symptoms have been present for 2 months and indicates a pain score of 1/10. MEDICAL/SURGICAL HISTORY: . Ascites. Ovarian mass. section. Cholecystectomy. [place] [facility] [place]EL[place]AST, 06/05/2018. . FLUID: Total volume of 12,400 cc of . Clear, straw-colored fluid was removed. Fluid was sent to lab for orde red studies. . . TECHNIQUE: Ultrasound guidance for abdominal paracentesis. Paracentesis. The risks, benefits, and alternatives to ultrasound guided paracentesis were explained to the patient in detail including the risk of bleeding and infection. Written and verbal informed consent was obt ained. With the patient on the ultrasound table, ultrasound imaging was used to select the most appropriate approach for paracentesis. Overlying skin was prepped and draped in the usual sterile fashion and wi th a local anesthetic, a dermatotomy was made with an 11 blade scalpel. A 6 [place] [id number] ca theter was introduced into the peritoneal cavity and fluid was collected. Post procedure scanning reveals no hematoma or other complication. The patient tolerated the procedu re well and left the ultrasound suite in stable condition. FINDINGS: Adequate fluid for paracentesis. CONCLUSION: 1. Uncomplicated paracentesis. Electronically signed by: Kristopher Jackson MD Board Certified Radiologist 06/07/2018 12:24 PM EST
[2018-06-07 12:35] LABS: Platelet Morphology Normal (Normal)
[2018-06-07 12:45] LABS: Hepatitits B Surface Antigen Nonreactive (Nonreactive)
[2018-06-07 12:49] LABS: Hepatitis A IgM Antibody Nonreactive (Nonreactive)
[2018-06-07 13:45] LABS: Neutrophils,Peritoneal Fluid 5 %; RBC,Peritoneal Fluid 45 /mm3 (0-0)
[2018-06-07 13:46] LABS: Mesothelial,Peritoneal Fluid 22 %
[2018-06-07] MEDS: Enoxaparin Inj 40 MG/0.4 ML Syringe SQ SCH (13:54)
--- NOTE | 2018-06-07 14:10 | P.CONGI ---
History of Present Illness Consult date: 06/07/18 Consult reason: Elevated LFTs with ascites Chief complaint: Pelvic mass, Malignant ascitesm UTI, Abdominal Doris History of Present Illness: Patient is a very pleasant 52-year-old female with past medical history significant for arthritis. Surgical history significant for x3 and cholecystectomy. Of note, family history significant for mom who of ovarian cancer in her 50s. Upon consultation, patient endorses that she has a history of right ovarian mass. States that she was diagnosed in 9 months ago. Reports she is a patient of Dr. MINOR at [facility] and has a follow-up appointment in June 2018. Patient endorses increasing abdominal distention for the past month. She reports that pain and abdominal distention has worsened over the last 2 weeks making it very difficult to bend over leave down and sleep and also ambulate. Patient describes the pain as a dull ache throughout her lower abdomen. At this time patient denies severe pain due to recent paracentesis. Patient denies any noted issues with her liver but does endorse long history of alcohol use in the past. Patient states that she stopped drinking [address] revealed mass in the right pelvis with severe ascites. Paracentesis drained approximately 12 L per patient. Patient currently receiving Rocephin 1 g IV every 24 hours for diagnosed UTI. INR 1.4 total bili 1.8 AST 2024 ALT 123 alk phos 153. Of note CA 125= 841. Hemoglobin 12.0 hematocrit 35.0. Patient denies any noted bleeding, hematemesis or hematochezia. Patient denies melanotic stools. Denies nausea or vomiting. Patient is noted to have bilateral lower extremity +1 pedal edema. Denies any home meds other than tramadol daily. Patient denies any difficulty swallowing. Denies symptoms of acid reflux. She reports last colonoscopy done in August 2017 with unremarkable findings as per patient. Patient denies any history of having EGD in the past. She denies diarrhea or constipation and states she has a soft BM daily. Our service has been consulted to evaluate patient for transaminitis with ascites. Review of Systems All other systems reviewed negative except as stated in HPI PMFSH - History History Provided By: Patient - Surgical History Surgical History: Surgical History (Last Reviewed 06/05/18 @ 23:24 by Zainab Lopez MD) H/O: - Tobacco History Second Hand Smoke Exposure: No Tobacco Use In Past 30 Days: No Smoking Status: Never smoker - Alcohol History How Often Do You Have a Drink Containing Alcohol: Never - Substance Use History Substance History: Active Abuse - Substance Use Type Marijuana Status: Active Route Used: Inhalation Reason for Use: Get High - Travel History Recent Travel in the [place] Within the Last 8 Weeks: No Recent Travel Out of the Country Within the Last 8 Weeks: No - Immunization History Tetanus Immunization: Unsure Hx Influenza Vaccine This Season: No Medications and Allergies Active Medications: Active Medications Enoxaparin Sodium (Lovenox Inj) 40 mg SQ Q24H [facility] Last Admin: 06/07/18 13:54 Dose: Not Given Flumazenil (Romazicon Inj) 0.2 mg IV.PUSH Q1M PRN PRN Reason: OVERSEDATION Haloperidol Lactate (Haldol Inj) 1 mg IV.PUSH Q15M PRN PRN Reason: for severe agitation Ceftriaxone Sodium 1,000 mg/ (Sodium Chloride) 100 mls @ 200 mls/hr IV.SIG Q24H ANETTE Last Infusion: 06/06/18 20:37 Dose: Infused Ibuprofen (Motrin) 400 mg PO Q6H PRN PRN Reason: PAIN SCALE 1 TO 2 Last Admin: 06/07/18 08:18 Dose: 400 mg Lorazepam (Ativan) 2 mg PO Q2H PRN PRN Reason: for CIWA 11-14 Lorazepam (Ativan Inj) 2 mg IV.PUSH Q2H PRN PRN Reason: for CIWA 11-14 Lorazepam (Ativan Inj) 2 mg IV.PUSH Q1H PRN PRN Reason: for CIWA 15-20 Lorazepam (Ativan Inj) 2 mg IV.PUSH Q15M PRN PRN Reason: for CIWA > 20 Lorazepam (Ativan Inj) 1 mg IV.PUSH Q4H PRN PRN Reason: for CIWA 8-10 Lorazepam (Ativan) 1 mg PO Q4H PRN PRN Reason: for CIWA 8-10 Morphine Sulfate (Morphine Inj) 4 mg IV.PUSH Q3H PRN PRN Reason: BREAKTHROUGH PAIN Last Admin: 06/06/18 16:26 Dose: 4 mg Naloxone HCl (Narcan Inj) 0.4 mg IV.PUSH UNSCH PRN PRN Reason: SEE LABEL COMMENTS Ondansetron HCl (Zofran Inj) 4 mg IV.PUSH Q6H PRN PRN Reason: NAUSEA OR VOMITING Sodium Chloride (Ns Flush) 2 ml IV.FLUSH BID ANETTE Last Admin: 06/07/18 12:46 Dose: Not Given Sodium Chloride (Ns Flush) 2 ml IV.FLUSH PRN PRN PRN Reason: FLUSH AFTER USING IV ACCESS Tramadol HCl (Ultram) 50 mg PO Q4H PRN PRN Reason: PAIN SCALE 3 TO 5 Tramadol HCl (Ultram) 100 mg PO Q4H PRN PRN Reason: PAIN SCALE 6 TO 10 Last Admin: 06/06/18 21:10 Dose: 100 mg Allergies Allergy/AdvReac Type Severity Reaction Status Date / Time acetaminophen Allergy Intermediate Nausea/Vomi Verified 06/05/18 20:57 ting hydrocodone AdvReac Mild Nausea/Vomi Verified 06/05/18 20:57 ting *MDRO Multi-Drug Resistant AdvReac Unknown Nausea/Vomi Uncoded 06/05/18 20:57 Organism ting Home Medications Medication Instructions Recorded Confirmed Type tramadol 50 mg PO QID 06/05/18 06/05/18 History Exam Vital signs: Vital Signs 06/06/18 15:19 06/06/18 20:00 06/06/18 21:20 Temperature 98.1 F 98.5 F 98.5 F Pulse Rate 72 74 80 Respiratory Rate 18 16 16 Blood Pressure 127/69 121/69 124/88 Pulse Oximetry 96 99 98 06/07/18 00:44 06/07/18 04:00 06/07/18 08:00 Temperature 99.0 F 98.2 F 97.9 F Pulse Rate 80 73 74 Respiratory Rate 20 18 16 Blood Pressure 121/81 103/73 113/71 Pulse Oximetry 96 95 96 06/07/18 09:03 06/07/18 10:34 06/07/18 10:53 Temperature 98.3 F 97.8 F Pulse Rate 64 66 64 Respiratory Rate 18 18 18 Blood Pressure 135/79 117/63 110/64 Pulse Oximetry 95 96 96 06/07/18 11:11 Temperature 97.5 F L Pulse Rate 65 Respiratory Rate 16 Blood Pressure 132/74 Pulse Oximetry 99 Intake & Output 06/06/18 06/07/18 06/07/18 18:59 06:59 18:59 Intake Total 1999 1580 / 1580 700 / 700 Balance 1999 1580 / 1580 700 / 700 Intake: IV 1999 1100 / 1100 700 / 700 NS Inj 1,000 ML @ 143 mls/hr IV 1999 1000 / 1000 700 / 700 .CONT .Q7H ANETTE Rx#:[id number] Rocephin Inj 1,000 MG In NS Inj 100 / 100 100 ML @ 200 mls/hr IV.SIG Q24H ANETTE Rx#:[id number] Oral 480 / 480 Other: # Voids 600 Date of Last Bowel Movement 06/05/18 - Constitutional no acute distress, morbidly obese, cooperative - Routine HEENT Exam Head: Present: normocephalic Eye: Absent: conjunctival icterus ENT: Present: mucous membranes moist - Routine Neck Exam Present: supple, trachea midline - Routine Respiratory Exam Present: CTA bilaterally. Absent: accessory muscle use - Routine Cardiovascular Exam Present: RRR - Routine Abdominal Exam Present: soft, normoactive bowel sounds, distended. Absent: tenderness, firm - Routine Extremities Exam Present: edema, pulses intact - Routine Skin Exam Present: dry, warm - Routine Neurological Exam Present: alert, oriented X3 Results - Labs CBC & Chem 7: 06/07/18 11:20 06/07/18 11:20 Labs: Laboratory Results - last 24 hr 06/05/18 06/06/18 06/07/18 20:45 12:09 06:06 WBC RBC Hgb Hct MCV MCH MCHC RDW Plt Count MPV Prelim Diff (Auto) Neut % (Auto) Lymph % (Auto) [place] % (Auto) Eos % (Auto) Baso % (Auto) Neut # (Auto) Lymph # (Auto) [place] # (Auto) Eos # (Auto) Baso # (Auto) WBC Differential Diff Scan Differential Comment Platelet Estimate Platelet Morphology Sodium Potassium Chloride Carbon Dioxide Anion Gap BUN Creatinine Estimated GFR Random Glucose Calcium Calcium Adj for Albumin Total Bilirubin AST ALT Alkaline Phosphatase Lactate Dehydrogenase 251 H Total Protein Albumin CA 125 Antigen 841.4 H Urine Color [place] Urine Clarity Cloudy H Urine pH 6.0 Ur Specific [place] 1.016 Urine Protein 30 H Urine Glucose (UA) Negative Urine Ketones Negative Urine Occult Blood Large H Urine Nitrate Positive H Urine Bilirubin Negative Urine Urobilinogen 1.0 Ur Leukocyte Esterase Large H Urine RBC 76 H Urine WBC Urine WBC Clumps Many H Ur Squamous Epith Cells 7 Calcium Oxalate Crystal Occasional H Amorphous Sediment Rare H Urine Bacteria Occasional H Urine Mucus Few H Micro UA Comment Culture indicated Urine Culture Comments Culture indicated Peritoneal RBC Periton Nuc Cells Periton Neutrophils Periton Lymphocytes Peritoneal Monocytes Periton Mesothelial Periton Histiocytes Peritoneal Tot Protein Peritoneal Albumin Peritoneal LDH Peritoneal Glucose Peritoneal Amylase Hepatitis A IgM Ab Hep Bs Antigen Hep B Core IgM Ab Hep C IgG Ab 06/07/18 06/07/18 06/07/18 09:24 09:24 11:20 WBC RBC Hgb Hct MCV MCH MCHC RDW Plt Count MPV Prelim Diff (Auto) Neut % (Auto) Lymph % (Auto) [place] % (Auto) Eos % (Auto) Baso % (Auto) Neut # (Auto) Lymph # (Auto) [place] # (Auto) Eos # (Auto) Baso # (Auto) WBC Differential Diff Scan Differential Comment Platelet Estimate Platelet Morphology Sodium 141 Potassium 3.9 Chloride 108 H Carbon Dioxide 28.2 Anion Gap 5 BUN 12 Creatinine 0.61 Estimated GFR Greater than 89 Random Glucose 75 Calcium 7.4 L* Calcium Adj for Albumin 9.2 Total Bilirubin 1.8 H AST 224 H ALT 123 H Alkaline Phosphatase 153 H Lactate Dehydrogenase Total Protein 6.1 L Albumin 1.8 L CA 125 Antigen Urine Color Urine Clarity Urine pH Ur Specific [place] Urine Protein Urine Glucose (UA) Urine Ketones Urine Occult Blood Urine Nitrate Urine Bilirubin Urine Urobilinogen Ur Leukocyte Esterase Urine RBC Urine WBC Urine WBC Clumps Ur Squamous Epith Cells Calcium Oxalate Crystal Amorphous Sediment Urine Bacteria Urine Mucus Micro UA Comment Urine Culture Comments Peritoneal RBC 45 H Periton Nuc Cells 127 H [place] Neutrophils 5 [place] Lymphocytes 29 Peritoneal Monocytes 39 Per[place] Mesothelial 22 Periton Histiocytes 5 Peritoneal Tot Protein 1.1 Peritoneal Albumin 0.4 Peritoneal LDH 51 Peritoneal Glucose 91 Peritoneal Amylase 6 Hepatitis A IgM Ab Hep Bs Antigen Hep B Core IgM Ab Hep C IgG Ab 06/07/18 06/07/18 11:20 11:20 WBC 4.1 RBC 3.54 L Hgb 12.0 Hct 35.8 MCV 101.1 H MCH 34.0 MCHC 33.6 RDW 15.2 Plt Count 97 L MPV 7.5 Prelim Diff (Auto) Slide review pending Neut % (Auto) 49.0 Lymph % (Auto) 35.9 [place] % (Auto) 10.2 H Eos % (Auto) 4.1 H Baso % (Auto) 0.8 Neut # (Auto) 2.0 Lymph # (Auto) 1.5 [place] # (Auto) 0.4 Eos # (Auto) 0.2 Baso # (Auto) 0.0 WBC Differential . Diff Scan Auto diff confirmed Differential Comment . Platelet Estimate Low L Platelet Morphology Normal Sodium Potassium Chloride Carbon Dioxide Anion Gap BUN Creatinine Estimated GFR Random Glucose Calcium Calcium Adj for Albumin Total Bilirubin AST ALT Alkaline Phosphatase Lactate Dehydrogenase Total Protein Albumin CA 125 Antigen Urine Color Urine Clarity Urine pH Ur Specific [place] Urine Protein Urine Glucose (UA) Urine Ketones Urine Occult Blood Urine Nitrate Urine Bilirubin Urine Urobilinogen Ur Leukocyte Esterase Urine RBC Urine WBC Urine WBC Clumps Ur Squamous Epith Cells Calcium Oxalate Crystal Amorphous Sediment Urine Bacteria Urine Mucus Micro UA Comment Urine Culture Comments Peritoneal RBC Periton Nuc Cells Periton Neutrophils Periton Lymphocytes Peritoneal Monocytes Periton Mesothelial Periton Histiocytes Peritoneal Tot Protein Peritoneal Albumin Peritoneal LDH Peritoneal Glucose Peritoneal Amylase Hepatitis A IgM Ab Nonreactive Hep Bs Antigen Nonreactive Hep B Core IgM Ab Nonreactive Hep C IgG Ab Reactive H - Imaging Impressions Paracentesis Ultrasound 06/07/18 00:00 CONCLUSION: 1. Uncomplicated paracentesis. Assessment and Plan (1) Transaminitis Status: Acute Code(s): R74.0 - Nonspecific elevation of levels of transaminase and lactic acid dehydrogenase [LDH] (2) Ascites Status: Acute Code(s): R18.8 - Other ascites (3) Abdominal pain Status: Acute Code(s): R10.9 - Unspecified abdominal pain - Plan Patient is a very pleasant 52-year-old female with past medical history significant for arthritis. Surgical history significant for x3 and cholecystectomy. Of note, family history significant for mom who of ovarian cancer in her 50s. Upon consultation, patient endorses that she has a history of right ovarian mass. States that she was diagnosed in 9 months ago. Reports she is a patient of Dr. MINOR at [facility] and has a follow-up appointment in June 2018. Patient endorses increasing abdominal distention for the past month. She reports that pain and abdominal distention has worsened over the last 2 weeks making it very difficult to bend over leave down and sleep and also ambulate. Patient describes the pain as a dull ache throughout her lower abdomen. At this time patient denies severe pain due to recent paracentesis. Patient denies any noted issues with her liver but does endorse long history of alcohol use in the past. Patient states that she stopped drinking [address] revealed mass in the right pelvis with severe ascites. Paracentesis drained approximately 12 L per patient. Patient currently receiving Rocephin 1 g IV every 24 hours for diagnosed UTI. INR 1.4 total bili 1.8 AST 2023 ALT 123 alk phos 153. Of note CA 125= 841. Hemoglobin 12.0 hematocrit 35.0. Patient denies any noted bleeding, hematemesis or hematochezia. Patient denies melanotic stools. Denies nausea or vomiting. Patient is noted to have bilateral lower extremity +1 pedal edema. Denies any home meds other than tramadol daily. Patient denies any difficulty swallowing. Denies symptoms of acid reflux. She reports last colonoscopy done in August 2017 with unremarkable findings as per patient. Patient denies any history of having EGD in the past. She denies diarrhea or constipation and states she has a soft BM daily. Our service has been consulted to evaluate patient for transaminitis with ascites. Transaminitis Ascites--malignant versus cirrhotic History of EtOH abuse Recent paracentesis History of ovarian mass Chronic hep C 06/07/2018 paracentesis ultrasound:Total volume of 12,400 cc of . Clear, straw- colored fluid was removed. Fluid was sent to lab for ordered studies 06/05/2018 CT abdomen and pelvis reveal the following: Interval development of severe ascites and bilateral abdominal wall fluid. Low-density cystic right pelvic mass is similar to prior. Plan -Regular diet as tolerated -N.p.o. 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 daily -Spironolactone 100 mg p.o. daily -Albumin 100 g x1 -Await paracentesis fluid studies -Monitor liver function tests -Avoid hepatotoxins -Consider adding diuretics -Consider Rocephin 2 g IV every 24 for SBP protocol -Liver workup -Hepatitis panel reveals hep C IgG antibody reactive -HCV RNA pending -Monitor for bleeding -Monitor hemoglobin and hematocrit -Supportive care -Further recommendations to follow This patient has been seen by myself and Dr. Concepcion and this note is written on his behalf - Attending Attestation Dr. Concepcion
[2018-06-07] MEDS: Albumin Human 25% Inj 100 ML IV.SIG SCH ×2 (15:34→16:10)
[2018-06-07] MEDS: Furosemide 40 MG Tablet PO SCH (15:35)
[2018-06-08] MEDS ORDERED: Chlorhexidine Gluconate 2% 1 Pack (2 Cloths) TOPICAL ONE (04:03)
[2018-06-08] MEDS ORDERED: Metoprolol Tartrate 25 MG Tablet PO ONE (04:03)
[2018-06-08] MEDS ORDERED: Sodium Chlor 0.9% Inj 500 ML IV.SIG SCH (05:00)
--- NOTE | 2018-06-08 08:05 | P.CON ---
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 She states she knew that she had a pelvic mass but failed to follow up. Patient reports generalized abdominal pain and weight gain. 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 Ct scan obained in ER reports stable pelvic mass and ascites. Labs shown elevated liver enzymes and alk phos. Patient states she was not aware of any liver disease but admits she was an alcoholic but stopped drinking "many years ago". She is s/p paracentesis with 12,400 ml drained, cytology is pending. GI has been consulted and EGD is scheduled for today. Urgent Care/onc was consulted for pelvic mass and elevated CA 125. I explained that ascites and increased CA 125 can be explained by liver disease but also malignancy. Imaging did not report any adenopathy or omental caking. I explained that she would have to be cleared by GI and her PCP before we would consider surgery. This mass has been reported as stable over the past ~8 months and we can follow up with her as outpatient for further discussion of treatment recommendations once she is discharged. Patient stated understanding and is agreeable. I briefly discussed with her surgical approach and she stated understanding. Review of Systems Constitutional: Reports fatigue, Reports weight gain Gastrointestinal: Reports abdominal pain, Reports bloating PMFSH - History History Provided By: Patient - Surgical History Surgical History: Surgical History (Last Reviewed 06/05/18 @ 23:24 by Zainab Lopez MD) H/O: - Tobacco History Second Hand Smoke Exposure: No Tobacco Use In Past 30 Days: No Smoking Status: Never smoker - Alcohol History How Often Do You Have a Drink Containing Alcohol: Never - Substance Use History Substance History: Active Abuse - Substance Use Type Marijuana Status: Active Route Used: Inhalation Reason for Use: Get High - Travel History Recent Travel in the [place] Within the Last 8 Weeks: No Recent Travel Out of the Country Within the Last 8 Weeks: No - Immunization History Tetanus Immunization: Unsure Hx Influenza Vaccine This Season: No Medications and Allergies Active Medications: Active Medications Enoxaparin Sodium (Lovenox Inj) 40 mg SQ Q24H ANETTE Last Admin: 06/07/18 13:54 Dose: Not Given Flumazenil (Romazicon Inj) 0.2 mg IV.PUSH Q1M PRN PRN Reason: OVERSEDATION Furosemide (Lasix) 40 mg PO DAILY [facility] Last Admin: 06/07/18 15:35 Dose: 40 mg Haloperidol Lactate (Haldol Inj) 1 mg IV.PUSH Q15M PRN PRN Reason: for severe agitation Lactated Ringer's (Lr 1000 Ml Inj) 1,000 mls @ 30 mls/hr IV.SIG .Q24H ANETTE Stop: 06/09/18 04:14 Sodium Chloride (Ns Inj) 500 mls @ 30 mls/hr IV.SIG .Q10H ANETTE Last Admin: 06/08/18 06:24 Dose: Not Given Ceftriaxone Sodium 2,000 mg/ (Sodium Chloride) 100 mls @ 200 mls/hr IV.SIG Q24H ANETTE Ibuprofen (Motrin) 400 mg PO Q6H PRN PRN Reason: PAIN SCALE 1 TO 2 Last Admin: 06/07/18 08:18 Dose: 400 mg Lorazepam (Ativan) 2 mg PO Q2H PRN PRN Reason: for CIWA 11-14 Lorazepam (Ativan Inj) 2 mg IV.PUSH Q2H PRN PRN Reason: for CIWA 11-14 Lorazepam (Ativan Inj) 2 mg IV.PUSH Q1H PRN PRN Reason: for CIWA 15-20 Lorazepam (Ativan Inj) 2 mg IV.PUSH Q15M PRN PRN Reason: for CIWA > 20 Lorazepam (Ativan Inj) 1 mg IV.PUSH Q4H PRN PRN Reason: for CIWA 8-10 Lorazepam (Ativan) 1 mg PO Q4H PRN PRN Reason: for CIWA 8-10 Morphine Sulfate (Morphine Inj) 4 mg IV.PUSH Q3H PRN PRN Reason: BREAKTHROUGH PAIN Last Admin: 06/06/18 16:26 Dose: 4 mg Naloxone HCl (Narcan Inj) 0.4 mg IV.PUSH UNSCH PRN PRN Reason: SEE LABEL COMMENTS Ondansetron HCl (Zofran Inj) 4 mg IV.PUSH Q6H PRN PRN Reason: NAUSEA OR VOMITING Pantoprazole Sodium (Protonix) 40 mg PO DAILY [facility] Sodium Chloride (Ns Flush) 2 ml IV.FLUSH BID [facility] Last Admin: 06/07/18 21:35 Dose: 2 ml Sodium Chloride (Ns Flush) 2 ml IV.FLUSH PRN PRN PRN Reason: FLUSH AFTER USING IV ACCESS Spironolactone (Aldactone) 100 mg PO DAILY [facility] Last Admin: 06/07/18 17:23 Dose: 100 mg Tramadol HCl (Ultram) 50 mg PO Q4H PRN PRN Reason: PAIN SCALE 3 TO 5 Tramadol HCl (Ultram) 100 mg PO Q4H PRN PRN Reason: PAIN SCALE 6 TO 10 Last Admin: 06/06/18 21:10 Dose: 100 mg Allergies Allergy/AdvReac Type Severity Reaction Status Date / Time acetaminophen Allergy Intermediate Nausea/Vomi Verified 06/05/18 20:57 ting hydrocodone AdvReac Mild Nausea/Vomi Verified 06/05/18 20:57 ting *MDRO Multi-Drug Resistant AdvReac Unknown Nausea/Vomi Uncoded 06/05/18 20:57 Organism ting Home Medications Medication Instructions Recorded Confirmed Type tramadol 50 mg PO QID 06/05/18 06/05/18 History Physical Exam Vital signs: Vital Signs 06/07/18 08:00 06/07/18 09:03 06/07/18 10:34 Temperature 97.9 F 98.3 F Pulse Rate 74 64 66 Respiratory Rate 16 18 18 Blood Pressure 113/71 135/79 117/63 Pulse Oximetry 96 95 96 06/07/18 10:53 06/07/18 11:11 06/07/18 15:37 Temperature 97.8 F 97.5 F L 97.9 F Pulse Rate 64 65 70 Respiratory Rate 18 16 16 Blood Pressure 110/64 132/74 109/67 Pulse Oximetry 96 99 96 06/07/18 20:55 06/08/18 00:46 06/08/18 03:26 Temperature 98.1 F 98.2 F 98.2 F Pulse Rate 70 80 76 Respiratory Rate 18 18 18 Blood Pressure 121/77 118/78 111/67 Pulse Oximetry 98 97 97 Intake & Output 06/07/18 06/08/18 06/08/18 18:59 06:59 18:59 Intake Total 1140 / 1140 830 / 830 Output Total 2300 / 2300 1300 / 1300 200 / 200 Balance -1160 / -1160 -470 / -470 -200 / -200 Weight 114.8 kg Intake: IV 900 / 900 110 / 110 NS Inj 1,000 ML @ 143 mls/hr IV 700 / 700 .CONT .Q7H ANETTE Rx#:[id number] Flexbumin 25% Inj 100 ML @ 60 200 / 200 mls/hr IV.SIG Q100M ANETTE Rx#: [id number] Rocephin Inj 1,000 MG In NS Inj 110 / 110 100 ML @ 200 mls/hr IV.SIG Q24H ANETTE Rx#:[id number] Oral 240 / 240 720 / 720 Output: Urine 2300 / 2300 1300 / 1300 200 / 200 Other: Date of Last Bowel Movement 06/07/18 # Bowel Movements 1 - Constitutional no acute distress - Routine HEENT Exam Head: Present: normocephalic, atraumatic Eye: Present: EOMI, PERRL, normal accommodation ENT: Present: mucous membranes moist - Routine Neck Exam Present: supple - Routine Respiratory Exam Present: CTA bilaterally - Routine Cardiovascular Exam Present: RRR - Routine Abdominal Exam Present: soft, normoactive bowel sounds - Routine Extremities Exam Present: edema Comments: bilat LE - Routine Skin Exam Present: intact - Routine Neurological Exam Present: alert, oriented X3 - Detailed Neurological Exam: Coma Scale Eye Opening: Spontaneous Verbal Response: Oriented Motor Response: Obey commands Rosa Coma Scale Total: 15 - Routine Psychiatric Exam Present: normal affect Results - Labs CBC & Chem 7: 06/07/18 11:20 06/07/18 11:20 Labs: Laboratory Results - last 24 hr 06/07/18 06/07/18 06/07/18 09:24 09:24 11:20 WBC RBC Hgb Hct MCV MCH MCHC RDW Plt Count MPV Prelim Diff (Auto) Neut % (Auto) Lymph % (Auto) [place] % (Auto) Eos % (Auto) Baso % (Auto) Neut # (Auto) Lymph # (Auto) [place] # (Auto) Eos # (Auto) Baso # (Auto) WBC Differential Diff Scan Differential Comment Platelet Estimate Platelet Morphology Sodium 141 Potassium 3.9 Chloride 108 H Carbon Dioxide 28.2 Anion Gap 5 BUN 12 Creatinine 0.61 Estimated GFR Greater than 89 Random Glucose 75 Calcium 7.4 L* Calcium Adj for Albumin 9.2 Total Bilirubin 1.8 H AST 224 H ALT 123 H Alkaline Phosphatase 153 H Total Protein 6.1 L Albumin 1.8 L Tumor Marker AFP Peritoneal RBC 45 H Periton Nuc Cells 127 H Periton Neutrophils 5 Periton Lymphocytes 29 Peritoneal Monocytes 39 Periton Mesothelial 22 Periton Histiocytes 5 Peritoneal Tot Protein 1.1 Peritoneal Albumin 0.4 Peritoneal LDH 51 Peritoneal Glucose 91 Peritoneal Amylase 6 Hepatitis A IgM Ab Hep Bs Antigen Hep B Core IgM Ab Hep C IgG Ab 06/07/18 06/07/18 06/07/18 11:20 11:20 15:59 WBC 4.1 RBC 3.54 L Hgb 12.0 Hct 35.8 MCV 101.1 H MCH 34.0 MCHC 33.6 RDW 15.2 Plt Count 97 L MPV 7.5 Prelim Diff (Auto) Slide review pending Neut % (Auto) 49.0 Lymph % (Auto) 35.9 [place] % (Auto) 10.2 H Eos % (Auto) 4.1 H Baso % (Auto) 0.8 Neut # (Auto) 2.0 Lymph # (Auto) 1.5 [place] # (Auto) 0.4 Eos # (Auto) 0.2 Baso # (Auto) 0.0 WBC Differential . Diff Scan Auto diff confirmed Differential Comment . Platelet Estimate Low L Platelet Morphology Normal Sodium Potassium Chloride Carbon Dioxide Anion Gap BUN Creatinine Estimated GFR Random Glucose Calcium Calcium Adj for Albumin Total Bilirubin AST ALT Alkaline Phosphatase Total Protein Albumin Tumor Marker AFP 4.0 Peritoneal RBC Periton Nuc Cells Periton Neutrophils Periton Lymphocytes Peritoneal Monocytes Periton Mesothelial Periton Histiocytes Peritoneal Tot Protein Peritoneal Albumin Peritoneal LDH Peritoneal Glucose Peritoneal Amylase Hepatitis A IgM Ab Nonreactive Hep Bs Antigen Nonreactive Hep B Core IgM Ab Nonreactive Hep C IgG Ab Reactive H - Imaging CT scan: 06/05/18 Interval development of a severe amount of ascites throughout the abdomen and pelvis causing distention of the abdomen. Low-density mass in the right pelvis measures 10.8 cm (previously measured 11.7 cm) there is also subcutaneous fluid about the lateral abdominal wall bilaterally and induration of the subcutaneous fat. Paracentesis Ultrasound 06/07/18 00:00 CONCLUSION: 1. Uncomplicated paracentesis. Assessment and Plan - Assessment (1) Ovarian mass Code(s): N83.9 - Noninflammatory disorder of ovary, fallopian tube and broad ligament, unspecified Status: Acute - Plan pelvic mass, elevated CA 125 to 841 elevated liver enzymes and alk phos patient for EGD today will follow up as outpt once discharged and cleared by GI and her PCP s/p paracentesis, results pending supportive care medical management per med team patient seen and examined by both myself and Dr. Triplett.
[2018-06-08] MEDS: Furosemide 40 MG Tablet PO SCH (08:11)
--- NOTE | 2018-06-08 08:48 | P.PNFP ---
Subjective Interval history: No acute events overnight. Patient is walking around in the room and brushing her hair. NPO for EGD this morning. Doing well. No complaints. Last BM was yesterday, soft stool. Passing gas. Denies fevers, CP, SOB, and N/V. <An Nunez T - 06/08/18 08:49> Results - Labs Result diagrams: 06/09/18 06:03 06/09/18 06:03 <Cynthia Saleem - 06/10/18 14:46> Abnormal lab results 06/07/18 06/07/18 06/07/18 Range/Units 09:24 11:20 11:20 RBC 3.54 L (4.00-5.30) mil/mm3 MCV 101.1 H (80.0-100.0) fL Plt Count 97 L (150-450) th/mm3 [place] % (Auto) 10.2 H (0.0-8.0) % Eos % (Auto) 4.1 H (0.0-4.0) % Platelet Estimate Low L (Normal) Chloride 108 H (98-107) meq/L Calcium 7.4 L* (8.5-10.1) mg/dL Total Bilirubin 1.8 H (0.2-1.0) mg/dL AST 224 H (15-37) U/L ALT 123 H (10-53) U/L Alkaline Phosphatase 153 H (45-117) U/L Total Protein 6.1 L (6.4-8.2) g/dL Albumin 1.8 L (3.4-5.0) g/dL Peritoneal RBC 45 H (0-0) /mm3 Periton Nuc Cells 127 H (0-10) /mm3 Hep C IgG Ab (Nonreactive) 06/07/18 Range/Units 11:20 RBC (4.00-5.30) mil/mm3 MCV (80.0-100.0) fL Plt Count (150-450) th/mm3 [place] % (Auto) (0.0-8.0) % Eos % (Auto) (0.0-4.0) % Platelet Estimate (Normal) Chloride (98-107) meq/L Calcium (8.5-10.1) mg/dL Total Bilirubin (0.2-1.0) mg/dL AST (15-37) U/L ALT (10-53) U/L Alkaline Phosphatase (45-117) U/L Total Protein (6.4-8.2) g/dL Albumin (3.4-5.0) g/dL Peritoneal RBC (0-0) /mm3 Periton Nuc Cells (0-10) /mm3 Hep C IgG Ab Reactive H (Nonreactive) Short CBC 06/07/18 Range/Units 11:20 WBC 4.1 (4.0-11.0) th/mm3 Hgb 12.0 (11.6-15.3) gm/dL Hct 35.8 (35.0-46.0) % Plt Count 97 L (150-450) th/mm3 BMP 06/07/18 11:20 Sodium 141 Potassium 3.9 Chloride 108 H Carbon Dioxide 28.2 BUN 12 Creatinine 0.61 Calcium 7.4 L* Liver Function 06/07/18 Range/Units 11:20 Total Bilirubin 1.8 H (0.2-1.0) mg/dL AST 224 H (15-37) U/L ALT 123 H (10-53) U/L Alkaline Phosphatase 153 H (45-117) U/L Albumin 1.8 L (3.4-5.0) g/dL <An Nunez - 06/08/18 08:48> - Imaging Impressions Paracentesis Ultrasound 06/07/18 00:00 CONCLUSION: 1. Uncomplicated paracentesis. <An Nunez - 06/08/18 08:48> Physical Exam Vital signs: Vital Signs 06/09/18 16:00 Temperature 98.1 F Pulse Rate 60 Respiratory Rate 18 Blood Pressure 100/59 L Pulse Oximetry 96 Intake & Output 06/09/18 06/10/18 06/10/18 18:59 06:59 18:59 Other: Date of Last Bowel Movement 06/09/18 <Cynthia Saleem - 06/10/18 14:46> Vital Signs 06/07/18 09:03 06/07/18 10:34 06/07/18 10:53 Temperature 98.3 F 97.8 F Pulse Rate 64 66 64 Respiratory Rate 18 18 18 Blood Pressure 135/79 117/63 110/64 Pulse Oximetry 95 96 96 06/07/18 11:11 06/07/18 15:37 06/07/18 20:55 Temperature 97.5 F L 97.9 F 98.1 F Pulse Rate 65 70 70 Respiratory Rate 16 16 18 Blood Pressure 132/74 109/67 121/77 Pulse Oximetry 99 96 98 06/08/18 00:46 06/08/18 03:26 06/08/18 08:00 Temperature 98.2 F 98.2 F 97.9 F Pulse Rate 80 76 73 Respiratory Rate 18 18 16 Blood Pressure 118/78 111/67 115/74 Pulse Oximetry 97 97 96 Intake & Output 06/07/18 06/08/18 06/08/18 18:59 06:59 18:59 Intake Total 1140 / 1140 830 / 830 Output Total 2300 / 2300 1300 / 1300 200 / 200 Balance -1160 / -1160 -470 / -470 -200 / -200 Weight 114.8 kg Intake: IV 900 / 900 110 / 110 NS Inj 1,000 ML @ 143 mls/hr IV 700 / 700 .CONT .Q7H ANETTE Rx#:[id number] Flexbumin 25% Inj 100 ML @ 60 200 / 200 mls/hr IV.SIG Q100M ANETTE Rx#: [id number] Rocephin Inj 1,000 MG In NS Inj 110 / 110 100 ML @ 200 mls/hr IV.SIG Q24H ANETTE Rx#:[id number] Oral 240 / 240 720 / 720 Output: Urine 2300 / 2300 1300 / 1300 200 / 200 Other: Date of Last Bowel Movement 06/07/18 # Bowel Movements 1 <Van An Crespo Phillips - 06/08/18 08:48> - Constitutional no acute distress, obese <Van Cherie,An Phillips - 06/08/18 08:49> - Routine Respiratory Exam Present: CTA bilaterally. Absent: wheezes, crackles <Van Cherie,An Phillips 08:49> - Routine Cardiovascular Exam Present: RRR, S1, S2. Absent: murmur, gallop, rubs <Van Cherie,An Phillips 08:49> - Routine Abdominal Exam Present: normoactive bowel sounds, distended, firm. Absent: tenderness, rebound , guarding <Van Cherie,An Phillips - 06/08/18 08:49> - Routine Extremities Exam Present: edema. Absent: cyanosis, clubbing <An Nunez T - 06/08/18 08 :49> Assessment and Plan - Assessment (1) Ovarian mass Code(s): N83.9 - Noninflammatory disorder of ovary, fallopian tube and broad ligament, unspecified Status: Acute (2) UTI (urinary tract infection) Code(s): N39.0 - Urinary tract infection, site not specified Status: Acute (3) Ascites Code(s): R18.8 - Other ascites Status: Acute (4) Abdominal pain Code(s): R10.9 - Unspecified abdominal pain Status: Acute (5) Hepatitis C Code(s): B19.20 - Unspecified viral hepatitis C without hepatic coma Status: Acute <Cynthia Saleem - 06/10/18 14:46> (1) Ovarian mass Code(s): N83.9 - Noninflammatory disorder of ovary, fallopian tube and broad ligament, unspecified Status: Acute (2) UTI (urinary tract infection) Code(s): N39.0 - Urinary tract infection, site not specified Status: Acute (3) Ascites Code(s): R18.8 - Other ascites Status: Acute (4) Abdominal pain Code(s): R10.9 - Unspecified abdominal pain Status: Acute (5) Hepatitis C Code(s): B19.20 - Unspecified viral hepatitis C without hepatic coma Status: Acute <An Nunez T - 06/08/18 11:03> - Assessment and Plan 52-year-old female presents the ED with abdominal pain and distention secondary to right ovarian mass. Hep C/ Elevated LFTs/Ascites -Patient reports heavy drinking history and history of Hep C -s/p paracentesis 06/07, 12 L of fluid drained per patient, peritoneal fluid analysis- SAAG- 1.4, consistent with portal hypertension -MELD score of 12 -LFTs trending up -Hepatitis penal reactive for Hep C IgG Ab, genotype pending -GI consulted, appreciate recommendations -NPO, EGD today to evaluate for varices -albumin 100g x1 -Lasix 40mg PO daily, Spironolactone 100mg PO daily -Rocephin 2g IV every 24 for SBP Ovarian mass -History of right ovarian mass -Abdominal pelvis CT demonstrates interval development of severe ascites and bilateral abdominal wall fluid. Low density cystic right pelvic mass similar to prior. Measures 10.8 cm, previously measured 11.7 cm. -CA 125, 841.4, possibly elevated due to liver issues -Per discussion with DIRECTOR OF CARDIAC REHABILITATION onc, the ascites could be a separate problem. Fortunately this mass has not increased in size. No surgical intervention at this time. Recommend f/u with Dr. Santos at [facility] UTI -UA positive for occult blood, nitrates, leukocyte esterases, and bacteria -Urine culture positive for E.coli, resistant to bactrim and cipro, sensitive to cephalosporins -Continue Rocephin above Diet: NPO Fluids: none DVT prophylaxis: Lovenox q24h <An Nunez - 06/08/18 11:13> - Attending Attestation The exam, history, and the medical decision-making described in the above note were completed with the assistance of the resident physician. I reviewed and agree with the findings presented. I attest that I had a [id number] encounter with the patient on the same day, and personally performed and documented my assessment and findings in the medical record. she is feeling well after paracentesis <Cynthia Saleem - 06/10/18 14:46>
--- NOTE | 2018-06-08 08:52 | MB ---
cc: Zoila Triplett MD,Cynthia Concepcion,Franck Hendrix MD DATE: 06/08/2018 PHYSICIAN REQUESTING CONSULT: Cynthia Saleem MD, and Franck Concepcion MD. REASON FOR CONSULTATION: Ascites, cystic pelvic mass, elevated CA-125. HISTORY OF PRESENT ILLNESS: This patient is seen by me, examined and counseled by me. Her findings are reviewed, all in conjunction with our nurse practitioner (Renate Servin). I agree with the above findings, assessment, and plan of care. This is a 52-year-old female who was admitted for further evaluation and management of worsening abdominal pain, found on exam and imaging to have profound ascites. There was approximately 10 cm cystic fullness in the pelvis. This was noticed on imaging previously and has not changed significantly in size. There is no detectable omental thickening, intraperitoneal nodularity, or retroperitoneal adenopathy. I spoke with the medical record assistant over the weekend and inquired as to whether or not this patient had liver disease. In fact, her CT scan shows retraction of the liver with a nodular surface. Her bilirubin and transaminases are elevated. In talking with her, she reports that she is an alcoholic. She used to drink heavily, but reports not having alcohol of any type in recent years. She does not have a history of hepatitis. She does not have a known history of liver disease by her report. Apparently, she was seen in approximately 2016 where the ascites and the cyst in the pelvis were noted, but she did not follow up as recommended. It is possible that these changes have been present for a long period of time. I recommended that the fluid be drained and, in addition to other studies, be sent for cytology. It is also known that cirrhosis and ascites can cause profound elevation of CA-125, so we need to clarify whether or not this is all related to an underlying malignancy versus liver disease. It is quite possible that all of her findings are related to liver disease with cirrhosis and the cyst in the pelvis is true and unrelated. Conversely, should this be malignancy, then further step should be taken to address it. She is a poor surgical candidate and would likely need to be considered for chemotherapy if in fact treatment were to be considered. She has got an ongoing GI workup. She is scheduled for an EGD today. I am not certain whether or not that evaluation would include liver biopsy. It is also noted on her work on her admission that her INR was elevated at 1.4. She is seen in consultation for further evaluation and recommendations regarding these findings. Her known past medical history, past surgical history, medications, family history, review of systems, surgeries are all outlined in the chart. I detected no additional information to expand on that information; however, it does sound as though her mother had ovarian cancer and reportedly due to ovarian cancer in her 50s. OBJECTIVE: CT scan shows massive ascites and a 10 cm cyst in the pelvis. The CT scan was able to be compared to a CT scan done in 08/2017, which showed no significant change in the size of the cyst. It is noted that resolution can be diminished in someone who has profound central obesity and extensive ascites, both of which apply in her case. So, it is possible that the resolution of the CT scan to detect intraperitoneal changes related to malignancy has been reduced. LABORATORY DATA: As noted above. She has a positive urine culture for Escherichia coli. PHYSICAL EXAMINATION: VITAL SIGNS: She is afebrile, pulse 76, respirations 18, blood pressure 111/67. GENERAL: She is resting comfortably in bed. Reports that she had significant symptomatic alleviation after 12 liters of ascites were removed yesterday at paracentesis. She is an adequate historian. She reports that she had an annual exam with Dr. Heidy Sanchez within the year and she was referred to a clinic, the name of which she cannot recall, but she states that she believes she had an updated pelvic exam and Pap smear within the year. We will try to obtain those records. She seems to understand the pertinent aspects of our discussion and asks appropriate questions. There is no supraclavicular adenopathy or cervical adenopathy. LUNGS: Clear. Mild rales at the bases with diminished breath sounds at the bases. CARDIOVASCULAR: Regular rate and rhythm. MUSCULOSKELETAL: She has some peripheral muscular wasting, but with very profound central obesity. ABDOMEN: Quite protuberant, distended. There is still ascites present despite a 12-liter removal yesterday. There is no rebound or guarding. I cannot appreciate the cystic mass on palpation. PELVIC: Deferred until more optimal setting. EXTREMITIES: One plus edema symmetrical bilaterally. No palpable cords. Changes suggestive of chronic venous stasis. Time was spent discussing with her, reviewing the findings in her case to date. The reason for QUARTER INSPECTOR oncology consultation is explained. I told we need more information to try to clarify what is going on with her. My impression is that this is probably due to underlying liver disease, but we must exclude the possibility of malignancy. It is also possible that both liver disease and malignancy are contributing to her findings. I explained that the fluid removed yesterday will be looked at under the microscope for the presence or absence of cancer cells and there is an ongoing evaluation by the spectral scientist to better understand the etiology and extent of her liver disease or other abnormalities that may be contributing to her findings. From a gynecologic oncology standpoint, the steps taken are steps recommended and everyone is moving forward in a timely fashion to try to clarify why she is feeling poorly and come up with treatment recommendations for her. Discussion ensued. Questions were asked and answered. We confirmed that she is scheduled for EGD today at 11:30 which was one of her questions. She understands. ASSESSMENT: 1. Profound ascites a cystic pelvic mass, elevated CA-125. 2. Elevated bilirubin and transaminases with history of alcoholism and CT changes suggestive of cirrhosis, elevated INR, all suggestive of underlying liver disease. 3. Status post removal of 12 liters of ascites yesterday with studies forthcoming. DISCUSSION: Counseling and coordination of care. PLAN: 1. Agree with the plan as outlined and steps taken thus far and scheduled in the evaluation and management of her findings. 2. Continue present management. No further recommendations from oncology, pending cytology and results of ongoing evaluation. 3. Poor surgical candidate, especially given stable cystic change in the pelvis, likely not contributing to her symptoms (abdominal pain due to huge volume tense ascites), low suspicion for malignancy despite the constellation of findings, but this certainly needs to be clarified. Thank you for the consultation. We will follow along in her care. MD LAURA Hernandez/sana , 07:35 AM , 07:52 AM
[2018-06-08 09:20] LABS: Baso % (Auto) 0.5 % (0.0-2.0); Eos # (Auto) 0.2 th/mm3 (0.0-0.4); Eos % (Auto) 3.8 % (0.0-4.0); Hemoglobin 12.4 gm/dL (11.6-15.3); Lymph # (Auto) 1.1 th/mm3 (1.0-4.8); Lymph % (Auto) 24.4 % (9.0-44.0); Mean Corpuscular HGB Conc 34.4 % (32.0-36.0); Mean Corpuscular Hemoglobin 34.9 pg (27.0-34.0); Mean Corpuscular Volume 101.5 fL (80.0-100.0); Mean Platelet Volume 7.5 fL (7.0-11.0); Mono # (Auto) 0.4 th/mm3 (0.0-0.9); Mono % (Auto) 9.3 % (0.0-8.0); Neut # (Auto) 2.8 th/mm3 (1.8-7.7); Platelet Count 102 th/mm3 (150-450); Red Blood Count 3.55 mil/mm3 (4.00-5.30); Red Cell Distribution Width 14.6 % (11.6-17.2); White Blood Count 4.6 th/mm3 (4.0-11.0)
[2018-06-08 09:26] LABS: Activated Partial Thrombo Time 31.5 sec (23.4-31.7); INR 1.5 Ratio; Prothrombin Time 14.8 sec (9.8-11.6)
[2018-06-08 09:30] LABS: Albumin 2.1 g/dL (3.4-5.0); Anion Gap 6 meq/L (5-15); Aspartate Aminotransferase 238 U/L (15-37); Blood Urea Nitrogen 9 mg/dL (7-18); Calcium 7.5 mg/dL (8.5-10.1); Carbon Dioxide 26.4 meq/L (21.0-32.0); Chloride 109 meq/L (98-107); Glomerular Filtration Rate Greater Than 89 mL/min (>89); Glucose,Random 103 mg/dL (74-106); Potassium 3.7 meq/L (3.5-5.1); Sodium 141 meq/L (136-145)
[2018-06-08 09:34] LABS: Alanine Aminotransferase 131 U/L (10-53); Alkaline Phosphatase 198 U/L (45-117); Total Protein 6.1 g/dL (6.4-8.2)
[2018-06-08] MEDS ORDERED: Lidocaine PF 1% Inj 5 ML Syringe OTHER ONE (12:11)
[2018-06-08] MEDS: Nadolol 40 MG Tablet PO SCH (17:09)
--- NOTE | 2018-06-08 20:20 | ECG ---
Date Performed: 06/07/2018 Time Performed: 22:33:32 PTAGE: 53 years EKG: Sinus rhythm Normal ECG PREVIOUS TRACING Since the previous tracing, no significant change noted DOCTOR: Toribio Torres Interpretating Date/Time 06/08/2018 20:19:28
[2018-06-09 06:44] LABS: Baso % (Auto) 0.7 % (0.0-2.0); Eos # (Auto) 0.2 th/mm3 (0.0-0.4); Eos % (Auto) 4.5 % (0.0-4.0); Hematocrit 36.3 % (35.0-46.0); Hemoglobin 12.5 gm/dL (11.6-15.3); Lymph # (Auto) 1.7 th/mm3 (1.0-4.8); Lymph % (Auto) 33.6 % (9.0-44.0); Mean Corpuscular HGB Conc 34.5 % (32.0-36.0); Mean Corpuscular Hemoglobin 34.2 pg (27.0-34.0); Mean Corpuscular Volume 99.3 fL (80.0-100.0); Mean Platelet Volume 7.9 fL (7.0-11.0); Mono # (Auto) 0.5 th/mm3 (0.0-0.9); Mono % (Auto) 8.9 % (0.0-8.0); Neut # (Auto) 2.7 th/mm3 (1.8-7.7); Neut % (Auto) 52.3 % (16.0-70.0); Platelet Count 122 th/mm3 (150-450); Red Blood Count 3.66 mil/mm3 (4.00-5.30); White Blood Count 5.2 th/mm3 (4.0-11.0)
[2018-06-09 07:12] LABS: Anion Gap 6 meq/L (5-15); Blood Urea Nitrogen 8 mg/dL (7-18); Calcium 7.3 mg/dL (8.5-10.1); Carbon Dioxide 27.1 meq/L (21.0-32.0); Chloride 107 meq/L (98-107); Glomerular Filtration Rate Greater Than 89 mL/min (>89); Glucose,Random 69 mg/dL (74-106); Potassium 3.7 meq/L (3.5-5.1); Sodium 140 meq/L (136-145)
[2018-06-09 07:21] LABS: Calcium-Albumin Corrected 8.9 mg/dL (8.5-10.1)
--- NOTE | 2018-06-09 08:53 | P.PNFP ---
Subjective Interval history: No acute events overnight. Patient is sitting up in bed, eating breakfast. Reports that she had EGD done yesterday, but has not heard of the results. Comfortable going home today and follow up with GI and optometric technologist/onc outpatient. Wound drainage, 400ml Denies CP, SOB, abdominal pain, and N/V. Normal BMs. <Tae CherieAn T - 06/09/18 11:37> Results - Labs Result diagrams: 06/09/18 06:03 06/09/18 06:03 <Cynthia Saleem - 06/10/18 14:48> Abnormal lab results 06/08/18 06/08/18 06/08/18 Range/Units 09:00 09:00 09:00 RBC 3.55 L (4.00-5.30) mil/mm3 MCV 101.5 H (80.0-100.0) fL MCH 34.9 H (27.0-34.0) pg Plt Count 102 L (150-450) th/mm3 [place] % (Auto) 9.3 H (0.0-8.0) % Eos % (Auto) (0.0-4.0) % PT 14.8 H (9.8-11.6) sec Chloride 109 H (98-107) meq/L Creatinine (0.50-1.00) mg/dL Random Glucose (74-106) mg/dL Calcium 7.5 L (8.5-10.1) mg/dL Total Bilirubin 1.4 H (0.2-1.0) mg/dL AST 238 H (15-37) U/L ALT 131 H (10-53) U/L Alkaline Phosphatase 198 H (45-117) U/L Total Protein 6.1 L (6.4-8.2) g/dL Albumin 2.1 L (3.4-5.0) g/dL 06/09/18 06/09/18 Range/Units 06:03 06:03 RBC 3.66 L (4.00-5.30) mil/mm3 MCV (80.0-100.0) fL MCH 34.2 H (27.0-34.0) pg Plt Count 122 L (150-450) th/mm3 [place] % (Auto) 8.9 H (0.0-8.0) % Eos % (Auto) 4.5 H (0.0-4.0) % PT (9.8-11.6) sec Chloride (98-107) meq/L Creatinine 0.48 L (0.50-1.00) mg/dL Random Glucose 69 L (74-106) mg/dL Calcium 7.3 L* (8.5-10.1) mg/dL Total Bilirubin (0.2-1.0) mg/dL AST (15-37) U/L ALT (10-53) U/L Alkaline Phosphatase (45-117) U/L Total Protein (6.4-8.2) g/dL Albumin 2.0 L (3.4-5.0) g/dL Short CBC 06/08/18 06/09/18 Range/Units 09:00 06:03 WBC 4.6 5.2 (4.0-11.0) th/mm3 Hgb 12.4 12.5 (11.6-15.3) gm/dL Hct 36.0 36.3 (35.0-46.0) % Plt Count 102 L 122 L (150-450) th/mm3 BMP 06/08/18 06/09/18 09:00 06:03 Sodium 141 140 Potassium 3.7 3.7 Chloride 109 H 107 Carbon Dioxide 26.4 27.1 BUN 9 8 Creatinine 0.54 0.48 L Calcium 7.5 L 7.3 L* Liver Function 06/08/18 06/09/18 Range/Units 09:00 06:03 Total Bilirubin 1.4 H (0.2-1.0) mg/dL AST 238 H (15-37) U/L ALT 131 H (10-53) U/L Alkaline Phosphatase 198 H (45-117) U/L Albumin 2.1 L 2.0 L (3.4-5.0) g/dL <An Nunez T - 06/09/18 08:52> Physical Exam Vital signs: Vital Signs 06/09/18 16:00 Temperature 98.1 F Pulse Rate 60 Respiratory Rate 18 Blood Pressure 100/59 L Pulse Oximetry 96 Intake & Output 06/09/18 06/10/18 06/10/18 18:59 06:59 18:59 Other: Date of Last Bowel Movement 06/09/18 <Cynthia Saleem 06/10/18 14:48> Vital Signs 06/08/18 12:50 06/08/18 13:26 06/08/18 15:58 Temperature 98.0 F 97.9 F 98.0 F Pulse Rate 69 67 66 Respiratory Rate 16 16 16 Blood Pressure 101/54 L 125/76 120/71 Pulse Oximetry 96 98 98 06/08/18 19:50 06/09/18 00:16 06/09/18 04:50 Temperature 98.2 F 98.1 F 98 F Pulse Rate 57 L 58 L 60 Respiratory Rate 20 18 18 Blood Pressure 119/76 107/62 106/63 Pulse Oximetry 99 96 96 Intake & Output 06/08/18 06/09/18 06/09/18 18:59 06:59 18:59 Intake Total 1210 / 1210 390 / 390 Output Total 2500 / 2500 1999 / 1999 Balance -1290 / -1290 -1610 / -1610 Weight 113.1 kg Intake: IV 100 / 100 Rocephin Inj 2,000 MG In NS Inj 100 / 100 100 ML @ 200 mls/hr IV.SIG Q24H [facility] Rx#:[id number] Oral 1010 / 1010 390 / 390 Anesthesia Amount 100 / 100 Output: Urine 2500 / 2500 1600 / 1600 Wound Drainage 400 / 400 Right Upper Abdomen 400 / 400 Other: # Voids 2 Date of Last Bowel Movement 06/07/18 <An Nunez 06/09/18 08:52> - Constitutional no acute distress <An Nunez 06/09/18 11:37> - Routine Respiratory Exam Present: CTA bilaterally. Absent: wheezes, crackles <An Nunez 11:37> - Routine Cardiovascular Exam Present: RRR, S1, S2. Absent: murmur, gallop, rubs <An Nunez 11:37> - Routine Abdominal Exam Present: soft, normoactive bowel sounds, distended. Absent: tenderness <An Nunez 06/09/18 11:37> Comments: wound drainage in RUQ in place <An Nunez 06/09/18 11:37> - Routine Extremities Exam Present: edema. Absent: cyanosis, clubbing <An Nunez - 06/09/18 11 :37> Comments: nonpitting edema b/l <An Nunez - 06/09/18 11:37> Assessment and Plan - Assessment (1) Ovarian mass Code(s): N83.9 - Noninflammatory disorder of ovary, fallopian tube and broad ligament, unspecified Status: Acute (2) UTI (urinary tract infection) Code(s): N39.0 - Urinary tract infection, site not specified Status: Acute (3) Ascites Code(s): R18.8 - Other ascites Status: Acute (4) Abdominal pain Code(s): R10.9 - Unspecified abdominal pain Status: Acute (5) Hepatitis C Code(s): B19.20 - Unspecified viral hepatitis C without hepatic coma Status: Acute <Cynthia Saleem - 06/10/18 14:48> (1) Ovarian mass Code(s): N83.9 - Noninflammatory disorder of ovary, fallopian tube and broad ligament, unspecified Status: Acute (2) UTI (urinary tract infection) Code(s): N39.0 - Urinary tract infection, site not specified Status: Acute (3) Ascites Code(s): R18.8 - Other ascites Status: Acute (4) Abdominal pain Code(s): R10.9 - Unspecified abdominal pain Status: Acute (5) Hepatitis C Code(s): B19.20 - Unspecified viral hepatitis C without hepatic coma Status: Acute <An Nunez - 06/09/18 11:33> - Assessment and Plan 52-year-old female presents the ED with abdominal pain and distention. Hep C/ Elevated LFTs/Ascites -Patient reports heavy drinking history and history of Hep C -s/p paracentesis 06/07, 12 L of fluid drained per patient, peritoneal fluid analysis- SAAG- 1.4, consistent with portal hypertension -MELD score of 12 -LFTs trending up -Hepatitis penal reactive for Hep C IgG Ab, genotype pending -GI consulted, appreciate recommendations -Status post EGD on 06/08 demonstrated portal hypertensive gastropathy was found in the entire stomach. Normal duodenal mucosa in the entire duodenum. Retroflexed views revealed no abnormalities. -albumin 100g x1 -Lasix 40mg PO daily, Spironolactone 100mg PO daily -Nadolol 40mg daily -s/p 2 g Rocephin -f/u in 2 weeks with GI outpatient Ovarian mass -History of right ovarian mass -Abdominal pelvis CT demonstrates interval development of severe ascites and bilateral abdominal wall fluid. Low density cystic right pelvic mass similar to prior. Measures 10.8 cm, previously measured 11.7 cm. -CA 125, 841.4, possibly elevated due to liver issues -Per discussion with SPREADER OPERATOR onc, the ascites could be a separate problem. Fortunately this mass has not increased in size. No surgical intervention at this time. Recommend f/u with Dr. Santos at [facility] UTI -UA positive for occult blood, nitrates, leukocyte esterases, and bacteria -Urine culture positive for E.coli, resistant to bactrim and cipro, sensitive to cephalosporins -Rocephin (06/05-06/09) Diet: Regular Diet Fluids: none DVT prophylaxis: Lovenox q24h Discharge planning: home health PT to assist with wound drainage <An Nunez - 06/09/18 11:37> - Attending Attestation The exam, history, and the medical decision-making described in the above note were completed with the assistance of the resident physician. I reviewed and agree with the findings presented. I attest that I had a [id number] encounter with the patient on the same day, and personally performed and documented my assessment and findings in the medical record. unfortunately, she has a history of not following up with appointments, etc. she is at risk of returning with ascites but now she is doing well and does not need to be in the hospital <Cynthia Saleem - 06/10/18 14:48>
--- NOTE | 2018-06-09 09:22 | P.DCO ---
- Diagnosis (1) Ascites Status: Acute (2) Abdominal pain Status: Acute (3) Hepatitis C Status: Acute - Home Health Nursing Order: Medical education, Medication education-adverse effect, Wound care and dressing changes - Case Management Consult Case Management Consult-Home Health: Yes - Certification I have seen patient Liz Eli on 06/09/18. My clinical findings support the need for the requested home health care services because: Limited ability to care for self I certify that my clinical findings support that this patient is homebound because: Impaired cognitive ability/safety, Unsteady gait/balance
--- NOTE | 2018-06-09 09:47 | GIPROC ---
[facility] [address] [facility]. [facility], [address] EGD PROCEDURE REPORT EXAM DATE: 06/08/2018 PATIENT NAME: Liz Eli MR #: [id number] BIRTHDATE: 1965 ATTENDING: Franck Concepcion MD ORDER #: [id number] CONCRETE PAVING MACHINE OPERATOR: Mary Gan and Kell Mejia STATUS: inpatient INDICATIONS: The patient is a 53 yr old female here for an EGD due to H/O ascites PROCEDURE PERFORMED: EGD, diagnostic MEDICATIONS: Per Anesthesia and None. TOPICAL ANESTHETIC: CONSENT: The patient understands the risks and benefits of the procedure and understands that these risks include, but are not limited to: sedation, allergic reaction, infection, perforation and/or bleeding. Alternative means of evaluation and treatment include, among others: physical exam, x-rays, and/or surgical intervention. The patient elects to proceed with this endoscopic procedure. medical equipment was checked for proper function. Hand hygiene and appropriate measures for infection prevention was taken. After the risks, benefits and alternatives of the procedure were thoroughly explained, Informed consent was verified, confirmed and timeout was successfully executed by the treatment team. The patient was anesthetized with topical anesthesia and the Pentax [id number] endoscope was introduced through the mouth and advanced to the second portion of the duodenum. Retroflexed views revealed no abnormalities The gastroscope was then slowly withdrawn and removed. 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 There was evidence of prior scarring. STOMACH: Mild portal hypertensive gastropathy was found in the entire examined stomach. DUODENUM: The duodenal mucosa appeared normal in the entire duodenum. ADVERSE EVENTS: There were no complications. IMPRESSIONS: 1. Portal hypertensive gastropathy was found in the entire examined stomach 2. Normal duodenal mucosa in the entire duodenum 3. Retroflexed views revealed no abnormalities RECOMMENDATIONS: Add Nadolol 40 mg QD PATIENT CONDITION: stable DISPOSITION: Inpatient REPEAT EXAM: Return as needed for EGD Franck Concepcion MD eSigned: Franck Concepcion MD 06/09/2018 9:47 AM cc: PATIENT NAME: Liz Eli MR#: [id number]
--- NOTE | 2018-06-09 09:56 | P.PNGI ---
Subjective Interval history: Patient feels better\ Stated she is ready to go home and do her jyothi No reports of nausea and vomiting no abdominal pain no blood in the stool Tolerated her breakfast this morning Physical Exam Vital signs: Vital Signs 06/08/18 12:50 06/08/18 13:26 06/08/18 15:58 Temperature 98.0 F 97.9 F 98.0 F Pulse Rate 69 67 66 Respiratory Rate 16 16 16 Blood Pressure 101/54 L 125/76 120/71 Pulse Oximetry 96 98 98 06/08/18 19:50 06/09/18 00:16 06/09/18 04:50 Temperature 98.2 F 98.1 F 98 F Pulse Rate 57 L 58 L 60 Respiratory Rate 20 18 18 Blood Pressure 119/76 107/62 106/63 Pulse Oximetry 99 96 96 Intake & Output 06/08/18 06/09/18 06/09/18 18:59 06:59 18:59 Intake Total 1210 / 1210 390 / 390 Output Total 2500 / 2500 2000 / 1999 Balance -1290 / -1290 -1610 / -1610 Weight 113.1 kg Intake: IV 100 / 100 Rocephin Inj 2,000 MG In NS Inj 100 / 100 100 ML @ 200 mls/hr IV.SIG Q24H [facility] Rx#:[id number] Oral 1010 / 1010 390 / 390 Anesthesia Amount 100 / 100 Output: Urine 2500 / 2500 1600 / 1600 Wound Drainage 400 / 400 Right Upper Abdomen 400 / 400 Other: # Voids 2 Date of Last Bowel Movement 06/07/18 - Constitutional no acute distress, obese - Routine HEENT Exam Head: Present: normocephalic - Routine Neck Exam Present: supple - Routine Respiratory Exam Present: CTA bilaterally - Routine Cardiovascular Exam Present: RRR, S1, S2 - Routine Abdominal Exam Present: soft, normoactive bowel sounds, distended. Absent: tenderness Comments: Patient with pelvic mass - Routine Extremities Exam Present: pulses intact, normal capillary refill - Routine Skin Exam Present: intact - Routine Neurological Exam Present: alert, oriented X3 Results - Labs CBC & Chem 7: 06/09/18 06:03 06/09/18 06:03 Laboratory Results - last 24 hr 06/09/18 06/09/18 06:03 06:03 WBC 5.2 RBC 3.66 L Hgb 12.5 Hct 36.3 MCV 99.3 MCH 34.2 H MCHC 34.5 RDW 15.0 Plt Count 122 L MPV 7.9 Neut % (Auto) 52.3 Lymph % (Auto) 33.6 [place] % (Auto) 8.9 H Eos % (Auto) 4.5 H Baso % (Auto) 0.7 Neut # (Auto) 2.7 Lymph # (Auto) 1.7 [place] # (Auto) 0.5 Eos # (Auto) 0.2 Baso # (Auto) 0.0 WBC Differential . Differential Comment Auto diff final Sodium 140 Potassium 3.7 Chloride 107 Carbon Dioxide 27.1 Anion Gap 6 BUN 8 Creatinine 0.48 L Estimated GFR Greater than 89 Random Glucose 69 L Calcium 7.3 L* Calcium Adj for Albumin 8.9 Albumin 2.0 L Assessment and Plan (1) Transaminitis Status: Acute Code(s): R74.0 - Nonspecific elevation of levels of transaminase and lactic acid dehydrogenase [LDH] (2) Ascites Status: Acute Code(s): R18.8 - Other ascites (3) Abdominal pain Status: Acute Code(s): R10.9 - Unspecified abdominal pain - Plan Patient is a very pleasant 52-year-old female with past medical history significant for arthritis. Surgical history significant for x3 and cholecystectomy. Of note, family history significant for mom who of ovarian cancer in her 50s. Upon consultation, patient endorses that she has a history of right ovarian mass. States that she was diagnosed in 9 months ago. Reports she is a patient of Dr. MINOR at [facility] and has a follow-up appointment in June 2018. Patient endorses increasing abdominal distention for the past month. She reports that pain and abdominal distention has worsened over the last 2 weeks making it very difficult to bend over leave down and sleep and also ambulate. Patient describes the pain as a dull ache throughout her lower abdomen. At this time patient denies severe pain due to recent paracentesis. Patient denies any noted issues with her liver but does endorse long history of alcohol use in the past. Patient states that she stopped drinking [address] revealed mass in the right pelvis with severe ascites. Paracentesis drained approximately 12 L per patient. Patient currently receiving Rocephin 1 g IV every 24 hours for diagnosed UTI. INR 1.4 total bili 1.8 AST 2023 ALT 123 alk phos 153. Of note CA 125= 841. Hemoglobin 12.0 hematocrit 35.0. Patient denies any noted bleeding, hematemesis or hematochezia. Patient denies melanotic stools. Denies nausea or vomiting. Patient is noted to have bilateral lower extremity +1 pedal edema. Denies any home meds other than tramadol daily. Patient denies any difficulty swallowing. Denies symptoms of acid reflux. She reports last colonoscopy done in August 2017 with unremarkable findings as per patient. Patient denies any history of having EGD in the past. She denies diarrhea or constipation and states she has a soft BM daily. Our service has been consulted to evaluate patient for transaminitis with ascites. Transaminitis Ascites--malignant versus cirrhotic History of EtOH abuse Recent paracentesis History of ovarian mass Chronic hep C 06/07/2018 paracentesis ultrasound:Total volume of 12,400 cc of . Clear, straw- colored fluid was removed. Fluid was sent to lab for ordered studies 06/05/2018 CT abdomen and pelvis reveal the following: Interval development of severe ascites and bilateral abdominal wall fluid. Low-density cystic right pelvic mass is similar to prior. 06/09/2018 Status post EGD 06/08/2018 showed Portal hypertensive gastropathy was found in the entire examined stomach. Normal duodenal mucosa in the entire duodenum. Retroflexed views revealed no abnormalities. Assessment Alcoholic liver cirrhosis with chronic hep C post paracentesis Pelvic mass with ascites Transaminitis Patient hemoglobin is 12.5 hematocrit 36.3 platelet 122 Liver enzymes 238 AST 131 alkaline Renetta 198 Plan -Regular diet as tolerated -We will add nadolol 40 mg daily -Avoid hepatotoxins -Supportive care -CYANIDE CASE HARDENER consult -Okay to discharge from gastro standpoint patient can follow-up 2 weeks after discharge -Further recommendations to follow This patient has been seen by myself and Dr. Concepcion and this note is written on his behalf - Attending Attestation dr. Concepcion
[2018-06-09] MEDS: Nadolol 40 MG Tablet PO SCH (10:50)
[2018-06-09] MEDS: Furosemide 40 MG Tablet PO SCH (10:51)
[2018-06-09] MEDS: Enoxaparin Inj 40 MG/0.4 ML Syringe SQ SCH (10:51)
[2018-06-09 13:28] LABS: Smooth Muscle Total Auto Abs Negative (Negative)
--- NOTE | 2018-06-09 16:01 | P.DS ---
Date of admission: 06/05/18 23:07 Primary care physician: Miguel Torres MD Brief History from admission: Ms Eli is a 52-year-old female who presented to the ED with lower abdominal pain and abdominal distention. Patient has a history of right ovarian mass. States that she was told about this around 9 months ago. Was supposed to follow-up with Dr. Santos at [facility]. States that her appointment is not until June 25. Upon EMR review, patient was seen in the ED in 2016 and was diagnosed with right ovarian mass. Patient had appointment to follow with Dr. Triplett. Unsure if she ever followed up. She reports trouble with transportation. She reports increased abdominal distention for the past month. States that she has worsening abdominal pain for the past 2 weeks. Describes it as sharp, intermittent, located in the lower abdominal region. Rates the pain at 8 out of 10, but relieved with morphine. States that she was recently prescribed tramadol by her PCP for pain relief. Reports that she has gained about 50 pounds over the past couple months. Last bowel movement was this morning, she states it was normal. Denies fevers, night sweats, diarrhea, nausea vomiting, and dysuria. 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 Hx: - 3 c-sections last pap smear- last year normal mammogram- last year normal PSHx:[id number]-H-pgpncyyl Cholecystectomy FHx: Mom- ovarian cancer- 50-60s Aunt with unknown cancer [id number] SHx: Disabled Single Lives alone Former smoker, quit 1 month ago, 1-2 ppd for 20 years Denies drinking Endorses cocaine use in the past Requested medical marijuana DS: Diagnosis - Discharge Diagnosis (1) Ovarian mass Status: Acute (2) UTI (urinary tract infection) Status: Acute (3) Ascites Status: Acute (4) Abdominal pain Status: Acute (5) Hepatitis C Status: Acute DS: Medications - Discharge Medications Prescriptions: furosemide 40 mg PO DAILY #90 tab nadolol 40 mg PO DAILY #90 tab pantoprazole 40 mg PO DAILY #60 tab spironolactone 100 mg PO DAILY #90 tab DS: Summary - Time Spent with Patient Total time spent providing and/or coordinating discharge services: - Quality: VTE Deep Vein Thrombosis/Pulmonary Embolism Present on Admission: No Exam Vital signs: Vital Signs 06/08/18 19:50 06/09/18 00:16 06/09/18 04:50 Temperature 98.2 F 98.1 F 98 F Pulse Rate 57 L 58 L 60 Respiratory Rate 20 18 18 Blood Pressure 119/76 107/62 106/63 Pulse Oximetry 99 96 96 06/09/18 10:47 Temperature 98.3 F Pulse Rate 61 Respiratory Rate 16 Blood Pressure 108/69 Pulse Oximetry 94 L Intake & Output 06/08/18 06/09/18 06/09/18 18:59 06:59 18:59 Intake Total 1210 / 1210 390 / 390 Output Total 2500 / 2500 1999 / 1999 Balance -1290 / -1290 -1610 / -1610 Weight 113.1 kg Intake: IV 100 / 100 Rocephin Inj 2,000 MG In NS Inj 100 / 100 100 ML @ 200 mls/hr IV.SIG Q24H [facility] Rx#:[id number] Oral 1010 / 1010 390 / 390 Anesthesia Amount 100 / 100 Output: Urine 2500 / 2500 1600 / 1600 Wound Drainage 400 / 400 Right Upper Abdomen 400 / 400 Other: # Voids 2 Date of Last Bowel Movement 06/07/18 06/09/18 Results Labs on day of discharge: Labs from last 24 hours 06/09/18 06/09/18 06/07/18 06:03 06:03 15:59 WBC 5.2 RBC 3.66 L Hgb 12.5 Hct 36.3 MCV 99.3 MCH 34.2 H MCHC 34.5 RDW 15.0 Plt Count 122 L MPV 7.9 Neut % (Auto) 52.3 Lymph % (Auto) 33.6 [place] % (Auto) 8.9 H Eos % (Auto) 4.5 H Baso % (Auto) 0.7 Neut # (Auto) 2.7 Lymph # (Auto) 1.7 [place] # (Auto) 0.5 Eos # (Auto) 0.2 Baso # (Auto) 0.0 WBC Differential . Differential Comment Auto diff final Sodium 140 Potassium 3.7 Chloride 107 Carbon Dioxide 27.1 Anion Gap 6 BUN 8 Creatinine 0.48 L Estimated GFR Greater than 89 Random Glucose 69 L Calcium 7.3 L* Calcium Adj for Albumin 8.9 Albumin 2.0 L Anti-Smooth Muscle Ab Negative - Impressions ITS Impressions Abdomen/Pelvis CT 06/05/18 19:22 CONCLUSION: 1. Interval development of severe ascites and bilateral abdominal wall fluid. 2. Low-density cystic right pelvic mass is similar to prior. Chest X-Ray 06/05/18 19:24 CONCLUSION: The lungs are clear. Paracentesis Ultrasound 06/07/18 00:00 CONCLUSION: 1. Uncomplicated paracentesis. Discharge Plan - Discharge Disposition Patient Disposition: Discharge Home - Discharge Condition Condition: Stable - Discharge Order Discharge Orders: Discharge Order (Routine); Ordered 06/09/18 Ordered By: An Nunez - Physicians Team Primary Care Provider: Miguel Torres Attending Provider: Cynthia Saleem Other Providers: Lore,Insurance ; Franck Concepcion MD ; Zoila Triplett MD
[2018-06-09 16:59] VITALS: BP 100/59; PULSE 60; RESP 18; TEMP 98.1; O2SAT 96
[2018-06-10 19:51] LABS: Ceruloplasmin 26 mg/dL (18-53)
[2018-06-12 07:51] LABS: DS DNA Ab (Crithidia) NEGATIVE (NEGATIVE)
[2018-06-12 23:53] LABS: Hepatitis C RNA (PCR) log IUs 5.95
== END 2018-06-09 20:10 | disposition home health service (06) | DRG 760 ==
LOC: NEPE 18:01 → NEDA 23:07 → NEPFCDU 06-06 00:57 → HCIN 06-06 20:52
PROVIDERS: ADMIT Family Medicine; ATTEND Family Medicine
PROC: PANENDO (2018-06-08 12:11)
CPT/HCPCS: 49083; 71010; 71045; 74177; 80048; 80053; 80074; 81001; 82040; 82042; 82103; 82105; 82150; 82390; 82945; 83520; 83605; 83615; 83690; 83735; 83880; 84155; 84157; 84702; 85025; 85610; 85730; 86038; 86039; 86225; 86235; 86255; 86256; 86304; 86431; 86850; 86900; 86901; 87077; 87086; 87186; 87522; 87902; 89051; 90765; 90775; 93005; 96365; 96375; 99285; C1729; J0696; J1644; J1650; J2270; J2405; J2704; J7030; J7120; P9047; Q9967